=== PATIENT | male | born 1970 | race American Indian/Alaskan Native ===

== ENCOUNTER 2016-09-07 12:08 | Inpatient (IN) | payer MEDICARE ==
--- NOTE | 2016-09-07 12:53 | XRay Report ---
PORTABLE CHEST INDICATION: Hypertension. COMPARISON: 02/02/2016 FINDINGS: Portable, frontal chest radiograph demonstrates subtle nodular right upper to midlung zone infiltrate over an approximately 4 cm area, possibly in the upper lobe. Clear, well-expanded remainder lungs. No pleural effusions or CHF. Normal cardiomediastinal silhouette. EKG leads. Intact bones. CONCLUSION: Subtle right upper lobe pneumonia suspected, as described. Please correlate. Note also made of nodular infiltrative processes in the lungs reported on November [address] Thank you for the opportunity to participate in this patient's care.
[2016-09-07] MEDS ORDERED: NACL 0.9% 1000 ML 2,000 ML IV ONE (13:25)
[2016-09-07] MEDS ORDERED: VANCOMYCIN/NS 1 GM/250 ML 1 GM/250 ML BAG IV ONE (13:25)
[2016-09-07] MEDS ORDERED: MAXIPIME/NS 1 GM/100 ML 1 GM/100 ML BAG IV ONE (13:26)
[2016-09-07 14:21] LABS: Hematocrit 24.4 % (35.5-45.6); Hemoglobin 7.4 gm/dl (11.8-15.2); Mean Corpuscular HGB Conc 30 % (32-34); Mean Corpuscular Volume 75 fl (84-94); Platelet Count 143 K/mm3 (140-440); Red Blood Count 3.26 M/mm3 (3.65-5.03); Red Cell Distribution Width 19.2 % (13.2-15.2)
[2016-09-07 14:25] LABS: Mean Corpuscular Hemoglobin 23 pg (28-32); White Blood Count 1.7 K/mm3 (4.5-11.0)
[2016-09-07 14:35] LABS: Albumin 2.6 g/dL (3.9-5); Albumin/Globulin Ratio 0.5 %; Alkaline Phosphatase 51 units/L (35-129); Anion Gap 16 mmol/L; BUN/Creatinine Ratio 17.69; Blood Urea Nitrogen 23 mg/dL (9-20); Carbon Dioxide 21 mmol/L (22-30); Chloride 112.7 mmol/L (98-107); Glucose 78 mg/dL (75-100); Potassium 4.4 mmol/L (3.6-5.0); Sodium 145 mmol/L (137-145)
--- NOTE | 2016-09-07 14:39 | Emergency Department Report ---
ED Shortness of Breath HPI - General Chief Complaint: Dyspnea/Respdistress Stated Complaint: BERT Time Seen by Provider: 09/07/16 12:34 Source: patient Mode of arrival: Stretcher Limitations: Physical Limitation - History of Present Illness MD Complaint: shortness of breath, cough -: Gradual, days(s) Severity: mild Pain Scale: 3 Consistency: constant Improves With: nothing Worsens With: exertion Known History Of: HIV Associated Symptoms: cough, sputum production - Related Data Home Medications Medication Instructions Recorded Confirmed Last Taken Unobtainable 09/07/16 09/07/16 Unknown Allergies Allergy/AdvReac Type Severity Reaction Status Date / Time No Known Allergies Allergy Verified 12/07/15 04:53 ED Review of Systems ROS: Stated complaint: BERT Other details as noted in HPI Other: GENERAL: No weight change, fatigue, weakness, fever, chills, or night sweats SKIN: No changes in skin or hair, no itching, no rashes, no jaundice HEAD: No trauma, headache, or visual changes EYES: No blurriness, tearing, itching, acute visual loss, conjunctival discoloration, or scleral icterus EARS: No hearing loss, tinnitus, vertigo, or earache NOSE: No rhinorrhea, stuffiness, sneezing, itching, or epistaxis MOUTH: No bleeding gums, hoarseness, sore throat, or swelling CARDIAC: No new murmur, chest pain, palpitations, dyspnea on exertion, orthopnea , PND, or edema RESPIRATORY: shortness of breath, cough, sputum production, GI: No change in appetite, nausea, vomiting, dysphagia, change in bowel frequency, diarrhea, constipation, bleeding, hematemesis, melena, hematochezia, or abdominal pain URINARY: No frequency, urgency, polyuria, dysuria, hematuria, or incontinence MUSCULOSKELETAL: No muscle weakness, joint stiffness, decrease in range of motion, redness, swelling, tenderness NEUROLOGIC: No loss of sensation, numbness, tingling, tremors, weakness, paralysis, seizures HEMATOLOGIC: No anemia, easy bruising, bleeding, petechiae, or purpura ENDOCRINE: No hot or cold intolerance, sweating, polyuria, polydipsia or, polyphagia no thyroid problems PSYCHIATRIC: No change in mood, no anxiety, no depression ED Past Medical Hx - Past Medical History Hx Congestive Heart Failure: No Hx Diabetes: No Hx Sickle Cell Disease: No Hx Asthma: Yes Hx COPD: No Hx Tuberculosis: No Hx HIV: Yes (unknown CD4 count) - Social History Smoking Status: Never Smoker Substance Use Type: None - Medications Home Medications: Home Medications Medication Instructions Recorded Confirmed Last Taken Type Unobtainable 09/07/16 09/07/16 Unknown History ED Physical Exam - General Limitations: No Limitations - Other Other exam information: GENERAL: Patient in no acute distress HEAD: Normocephalic, atraumatic HEART: Regular rate and rhythm, no murmur, S1-S2 are auscultated, pulses are symmetric LUNGS: diminished breath sounds, rales ABDOMEN: Normal bowel sounds, no tenderness, no rebound, no guarding, no masses , no CVA tenderness MUSCULOSKELETAL: Normal joint range of motion, no redness, no swelling, no tenderness NEUROLOGIC: grossly intact SKIN: Skin is warm and dry ED Course Vital Signs 09/07/16 09/07/16 09/07/16 12:23 12:31 12:38 Temperature 97.8 F Pulse Rate 68 68 Respiratory 14 14 Rate Blood Pressure 97/69 Blood Pressure [Right] O2 Sat by Pulse 97 Oximetry 09/07/16 09/07/16 09/07/16 13:30 14:30 17:15 Temperature Pulse Rate 74 81 62 Respiratory 14 16 20 Rate Blood Pressure Blood Pressure 97/64 104/74 98/55 [Right] O2 Sat by Pulse 99 100 Oximetry ED Medical Decision Making - Lab Data Result diagrams: 09/07/16 13:44 09/07/16 13:44 - EKG Data Interpretation: no acute changes - Radiology Data Radiology results: report reviewed - Medical Decision Making Patient comfortable. Updated with results. Plan admission for further evaluation. Patient agrees with plan. Hospitalists accepts admission. Critical care attestation.: If time is entered above; I have spent that time in minutes in the direct care of this critically ill patient, excluding procedure time. ED Disposition Clinical Impression: Pneumonia Qualifiers: Pneumonia type: due to unspecified organism Laterality: right Lung location: unspecified part of lung Qualified Code(s): J18.9 - Pneumonia, unspecified organism Disposition: OP ADMIT IP TO THIS HOSP Is pt being admited?: Yes Condition: Stable Time of Disposition: 14:38
[2016-09-07 14:50] LABS: Alanine Aminotransferase < 5 units/L (7-56)
--- NOTE | 2016-09-07 14:54 | History and Physical Report ---
History of Present Illness Chief complaint: Im short of breath, and i get tired easy History of present illness: 46 YO Male with AIDS, Mild Intermittent Asthma presents to ED for evaluation. Pt states that he has been experiencing shortness of breath for the past week. Pt acknowledges subjective fever, 20 lbs unintentional weight loss. Pt unable to provide more history due to mental status. Pt seen and evaluated in ED. Pt is encephalopathic, but is able to protect his airway. Past History Past Medical History: HIV/AIDS, other (asthma) Past Surgical History: No surgical history, Other (reviewed) Social history: single, Lives alone. denies: smoking, alcohol abuse, prescription drug abuse Family history: no significant family history, other (reviewed) Medications and Allergies Allergies Allergy/AdvReac Type Severity Reaction Status Date / Time No Known Allergies Allergy Verified 12/07/15 04:53 Home Medications Medication Instructions Recorded Confirmed Last Taken Type Unobtainable 09/07/16 09/07/16 Unknown History Review of Systems ROS unobtainable: due to mental status Exam - Constitutional Vitals: Temp Pulse Resp BP Pulse Ox 97.8 F 82 16 138/76 99 09/07/16 12:23 09/07/16 14:06 09/07/16 14:06 09/07/16 14:06 09/07/16 14:06 General appearance: Present: mild distress, cachectic, disheveled, other ( bilateral temporal wasting) - EENT Eyes: Present: PERRL ENT: hearing intact, clear oral mucosa - Neck Neck: Present: supple, normal ROM - Respiratory Respiratory effort: labored Respiratory: bilateral: diminished - Cardiovascular Rhythm: regular Heart Sounds: Present: S1 & S2 - Extremities Extremities: no ischemia Peripheral Pulses: within normal limits - Abdominal General gastrointestinal: Present: soft, non-tender Male genitourinary: Present: normal - Integumentary Integumentary: Present: clear, dry, decreased turgor - Musculoskeletal Musculoskeletal: generalized weakness - Psychiatric Psychiatric: no intact judgment & insight, no memory intact - Neurologic Neurologic: CNII-XII intact, no gait normal Results - Labs CBC & Chem 7: 09/07/16 13:44 09/07/16 13:44 Labs: Abnormal lab results 09/07/16 09/07/16 Range/Units 13:44 13:44 WBC 1.7 L* (4.5-11.0) K/mm3 RBC 3.26 L (3.65-5.03) M/mm3 Hgb 7.4 L (11.8-15.2) gm/dl Hct 24.4 L (35.5-45.6) % MCV 75 L (84-94) fl MCH 23 L (28-32) pg MCHC 30 L (32-34) % RDW 19.2 H (13.2-15.2) % Chloride 112.7 H (98-107) mmol/L Carbon Dioxide 21 L (22-30) mmol/L BUN 23 H (9-20) mg/dL Calcium 8.0 L (8.4-10.2) mg/dL ALT < 5 L (7-56) units/L Albumin 2.6 L (3.9-5) g/dL Assessment and Plan - Patient Problems (1) AIDS Current Visit: Yes Status: Acute Plan to address problem: Resume antiretroviral therapy, supportive care, outpatient ID f/u, PCP and MAC prophylaxis (2) Pneumocystis carinii pneumonia Current Visit: Yes Status: Acute Qualifiers: Laterality: L Lung location: L Plan to address problem: Iv abx: Iv bactrim, corticosteroid therapy, supportive care, (3) Encephalopathy acute Current Visit: Yes Status: Acute Plan to address problem: Treat pneumonia, supportive care. (4) Severe malnutrition Current Visit: Yes Status: Acute Plan to address problem: encourage oral intake when awake, alert (5) DVT prophylaxis Current Visit: Yes Status: Acute
[2016-09-07 15:01] LABS: Basophils % (Manual) 0 % (0.0-1.8); Blastocytes % (Manual) 0 %
[2016-09-07 15:02] LABS: Anisocytosis 2+; Diff Status Complete; Elliptocytes 1+; Giant Platelets Rare; Hypochromasia 1+; Microcytosis 1+; Ovalocytes 1+; Poikilocytosis 2+; Schistocytes Rare; Tear Drop Cells Rare
[2016-09-07] MEDS ORDERED: TYLENOL PO PRN (16:08)
[2016-09-07] MEDS ORDERED: ZOFRAN IV PRN (16:08)
[2016-09-07] MEDS ORDERED: DUONEB 0.5 MG-3 MG/3 ML SOLN IH PRN (16:08)
[2016-09-07] MEDS ORDERED: PROVENTIL IH PRN (16:30)
[2016-09-07] MEDS ORDERED: ZITHROMAX 500 MG in NACL 0.9% 250ML 250 ML IV SCH (17:00)
[2016-09-07] MEDS ORDERED: NACL 0.9% 1000 ML 1,000 ML ONE (17:05)
[2016-09-07] MEDS: D5W IV SCH (22:28)
[2016-09-07] MEDS: BACTRIM IV SCH (22:28)
[2016-09-08] MEDS: NACL 0.45% 1000 ML 1,000 ML IV SCH (08:21)
--- NOTE | 2016-09-08 08:39 | Admit Criteria Form ---
Admission Criteria Documentation: PNEUMONIA, COMMUNITY ACQUIRED Clinical Indications for Admission to Inpatient Care ( Place 'X' for any and all applicable criteria): Admission is indicated for ANY ONE of the following (1)(2)(3): [ ]I. Hypoxemia indicated by ANY ONE of the following: [ ]a) Oxygen saturation less than 90% while breathing room air [ ]b) PO2 less than 60 mm Hg (8.0 kPa) while breathing room air [ ]c) Chronic lung disease with significant deterioration from baseline oxygenation [ ]II. Appropriate diagnostic testing and treatment unavailable in outpatient or recovery facility (eg,testing or infection control measures unavailable(10) [ ]III. Moderate-risk or high-risk category patients (Pneumonia Severity Index (PSI) class IV or V, or CURB-65 score of 3 or greater). [ ]IV. Outpatient treatment failure as indicated by ANY ONE of the following(9) : [ ]a) Failure to respond to antibiotic (eg, resistant organism) [ ]b) Clinically significant adverse effects from medication (eg, vomiting) [ ]c) Complications of pneumonia (eg, empyema, bacteremia) [ ]d) Significant worsening of comorbid cond necessitating inpatient care (eg, chronic heart failure) [ ]V. Intermediate-risk category patients (eg, PSI class III or CURB-65 score 2) who do not improve with initial therapy and observation. [X]. Immunocompromised patients (eg, AIDS, chronic steroid use) at moderate or high risk based on clinical evaluation. [ ]VII. Complicated pleural effusions (eg, exudative, loculated) [ ]VIII.Hemodynamic instability [ ] IX. Altered mental status that is severe or persistent. [ ]X. Dehydration that is severe or persistent. [ ]XI. Bacteremia [ ]XII. Respiratory finding (eg. tachypnea) that do not respond to outpatient or observation care treatment Extended stay beyond goal length of stay may be needed for (20) [ ]a) Unclear diagnosis [ ]b) Pleural disease [ ]c) Severe pneumonia or treatment failure (25 [ ]d) Respiratory failure (anticipate invasive or noninvasive ventilatory support) [ ]e) Abnormal serum electrolytes (serum Na concentration less than 135 mEq/L (mmol/L) (32)(33) [ ]f) Clinically significant comorbid illness (eg, heart failure, atrial fibrillation with rapid heart rate, alcohol withdrawal, renal insufficiency)(34)(35) [ ]g) Comorbid acute exacerbation of COPD(36) [ ]h) Concomitant diagnosis of malignancy that may be associated with malnutrition, immunologic impairment, or bronchial obstruction. [ ]i) Concomitant altered mental status [ ]j) Culture-identified Gram-negative or antibiotic-resistant organism (eg, Pseudomonas, methicillin-resistant Staphylococcus aureus)(30) [ ]k) Healthcare-associated pneumonia The original [employer] content created by [employer] has been revised. The portions of the content which have been revised are identified through the use of italic text or in bold, and [facility] has neither reviewed nor approved the modified material. All other unmodified content is copyright [employer]. Please see references footnoted in the original [email or web address] edition 2016 Admission Criteria Met: Yes
--- NOTE | 2016-09-08 11:27 | Progress Note ---
Assessment and Plan Assessment and plan: 46-year-old -German male with past medical history significant for AIDS , medication noncompliance presented to the emergency department complaining of cough and shortness of breath for the last 2 weeks associated with weight loss. He is admitted for further workup and management. PCP AIDS Noncompliance Right lower lobe pneumonia Malnutrition Leukopenia Anemia of chronic illness - Patient started on Bactrim and prednisone - Patient is on IV Levaquin - ID is consulted - Nutrition consult for malnutrition - Patient is counseled about medication compliance DVT prophylaxis - SCD because of anemia Disposition - We'll continue inpatient care. History Interval history: Patient was seen and evaluated this morning, he is complaining of cough productive of greenish sputum. Significant weight loss. Hospitalist Physical - Physical exam Narrative exam: Not in cardiopulmonary distress. The patient is cachectic. Vital signs as documented. Head exam is unremarkable. No scleral icterus . Neck is without jugular venous distension, thyromegaly, or carotid bruits. Lungs are clear to auscultation. Cardiac exam reveals regular rate and Rhythm. First and second heart sounds normal. No murmurs, rubs or gallops. Abdominal exam reveals normal bowel sounds, no masses, no organomegaly and no aortic enlargement. Extremities are nonedematous and both femoral and pedal pulses are normal. [employer]: Alert and oriented 3. No focal weakness. - Constitutional Vitals: Temp Pulse Resp BP Pulse Ox 98.1 F 76 18 88/57 100 09/08/16 04:00 09/08/16 04:00 09/08/16 04:00 09/08/16 04:00 09/07/16 23:02 General appearance: Present: mild distress, cachectic, disheveled, other ( bilateral temporal wasting) Results - Labs CBC & Chem 7: 09/07/16 13:44 09/07/16 13:44 Labs: Laboratory Last Values WBC 1.7 K/mm3 (4.5-11.0) L* 09/07/16 13:44 RBC 3.26 M/mm3 (3.65-5.03) L 09/07/16 13:44 Hgb 7.4 gm/dl (11.8-15.2) L 09/07/16 13:44 Hct 24.4 % (35.5-45.6) L 09/07/16 13:44 MCV 75 fl (84-94) L 09/07/16 13:44 MCH 23 pg (28-32) L 09/07/16 13:44 MCHC 30 % (32-34) L 09/07/16 13:44 RDW 19.2 % (13.2-15.2) H 09/07/16 13:44 Plt Count 143 K/mm3 (140-440) 09/07/16 13:44 Add Manual Diff Complete 09/07/16 13:44 Total Counted 100 09/07/16 13:44 Seg Neuts % (Manual) 76.0 % (40.0-70.0) H 09/07/16 13:44 Band Neutrophils % 4.0 % 09/07/16 13:44 Lymphocytes % (Manual) 13.0 % (13.4-35.0) L 09/07/16 13:44 Reactive Lymphs % (Man) 0 % 09/07/16 13:44 Monocytes % (Manual) 6.0 % (0.0-7.3) 09/07/16 13:44 Eosinophils % (Manual) 1.0 % (0.0-4.3) 09/07/16 13:44 Basophils % (Manual) 0 % (0.0-1.8) 09/07/16 13:44 Metamyelocytes % 0 % 09/07/16 13:44 Myelocytes % 0 % 09/07/16 13:44 Promyelocytes % 0 % 09/07/16 13:44 Blast Cells % 0 % 09/07/16 13:44 Nucleated RBC % Not Reportable 09/07/16 13:44 Seg Neutrophils # Man 1.3 K/mm3 (1.8-7.7) L 09/07/16 13:44 Band Neutrophils # 0.1 K/mm3 09/07/16 13:44 Lymphocytes # (Manual) 0.2 K/mm3 (1.2-5.4) L 09/07/16 13:44 Abs React Lymphs (Man) 0.0 K/mm3 09/07/16 13:44 Monocytes # (Manual) 0.1 K/mm3 (0.0-0.8) 09/07/16 13:44 Eosinophils # (Manual) 0.0 K/mm3 (0.0-0.4) 09/07/16 13:44 Basophils # (Manual) 0.0 K/mm3 (0.0-0.1) 09/07/16 13:44 Metamyelocytes # 0.0 K/mm3 09/07/16 13:44 Myelocytes # 0.0 K/mm3 09/07/16 13:44 Promyelocytes # 0.0 K/mm3 09/07/16 13:44 Blast Cells # 0.0 K/mm3 09/07/16 13:44 WBC Morphology Not Reportable 09/07/16 13:44 Hypersegmented Neuts Not Reportable 09/07/16 13:44 Hyposegmented Neuts Not Reportable 09/07/16 13:44 Hypogranular Neuts Not Reportable 09/07/16 13:44 Smudge Cells Not Reportable 09/07/16 13:44 Toxic Granulation Not Reportable 09/07/16 13:44 Toxic Vacuolation Not Reportable 09/07/16 13:44 Dohle Bodies Not Reportable 09/07/16 13:44 Pelger-Huet Anomaly Not Reportable 09/07/16 13:44 Tamia Rods Not Reportable 09/07/16 13:44 Platelet Estimate Appears normal 09/07/16 13:44 Clumped Platelets Not Reportable 09/07/16 13:44 Plt Clumps, EDTA Not Reportable 09/07/16 13:44 Large Platelets Not Reportable 09/07/16 13:44 Giant Platelets Rare 09/07/16 13:44 Platelet Satelliting Not Reportable 09/07/16 13:44 Plt Morphology Comment Not Reportable 09/07/16 13:44 RBC Morphology Not Reportable 09/07/16 13:44 Dimorphic RBCs Not Reportable 09/07/16 13:44 Polychromasia Not Reportable 09/07/16 13:44 Hypochromasia 1+ 09/07/16 13:44 Poikilocytosis 2+ 09/07/16 13:44 Anisocytosis 2+ 09/07/16 13:44 Microcytosis 1+ 09/07/16 13:44 Macrocytosis Not Reportable 09/07/16 13:44 Spherocytes Not Reportable 09/07/16 13:44 Pappenheimer Bodies Not Reportable 09/07/16 13:44 Sickle Cells Not Reportable 09/07/16 13:44 Target Cells Not Reportable 09/07/16 13:44 Tear Drop Cells Rare 09/07/16 13:44 Ovalocytes 1+ 09/07/16 13:44 Helmet Cells Not Reportable 09/07/16 13:44 Arizmendi-Ridgway Bodies Not Reportable 09/07/16 13:44 [place] Rings Not Reportable 09/07/16 13:44 Dianna Cells Not Reportable 09/07/16 13:44 Bite Cells Not Reportable 09/07/16 13:44 Crenated Cell Not Reportable 09/07/16 13:44 Elliptocytes 1+ 09/07/16 13:44 Acanthocytes (Spur) Not Reportable 09/07/16 13:44 Rouleaux Not Reportable 09/07/16 13:44 Hemoglobin C Crystals Not Reportable 09/07/16 13:44 Schistocytes Rare 09/07/16 13:44 Malaria parasites Not Reportable 09/07/16 13:44 Telly Bodies Not Reportable 09/07/16 13:44 Hem Pathologist Commnt No 09/07/16 13:44 Sodium 145 mmol/L (137-145) 09/07/16 13:44 Potassium 4.4 mmol/L (3.6-5.0) 09/07/16 13:44 Chloride 112.7 mmol/L (98-107) H 09/07/16 13:44 Carbon Dioxide 21 mmol/L (22-30) L 09/07/16 13:44 Anion Gap 16 mmol/L 09/07/16 13:44 BUN 23 mg/dL (9-20) H 09/07/16 13:44 Creatinine 1.3 mg/dL (0.8-1.5) 09/07/16 13:44 Estimated GFR > 60 ml/min 09/07/16 13:44 BUN/Creatinine Ratio 17.69 % 09/07/16 13:44 Glucose 78 mg/dL (75-100) 09/07/16 13:44 Lactic Acid 0.80 mmol/L (0.7-2.0) 09/07/16 13:44 Calcium 8.0 mg/dL (8.4-10.2) L 09/07/16 13:44 Total Bilirubin 0.30 mg/dL (0.1-1.2) 09/07/16 13:44 AST 13 units/L (5-40) 09/07/16 13:44 ALT < 5 units/L (7-56) L 09/07/16 13:44 Alkaline Phosphatase 51 units/L (35-129) 09/07/16 13:44 Troponin T < 0.010 ng/mL (0.00-0.029) 09/07/16 13:44 Total Protein 8.0 g/dL (6.3-8.2) 09/07/16 13:44 Albumin 2.6 g/dL (3.9-5) L 09/07/16 13:44 Albumin/Globulin Ratio 0.5 % 09/07/16 13:44 leukopenia
[2016-09-08] MEDS: LEVAQUIN 750MG/150ML 750 MG/150 ML BAG IV SCH (13:00)
[2016-09-08] MEDS: D5W IV SCH (20:57)
[2016-09-08] MEDS: BACTRIM IV SCH (20:57)
[2016-09-08] MEDS: PEPCID PO SCH (21:26)
--- NOTE | 2016-09-09 06:07 | Consultation ---
History of Present Illness - Reason for Consult Consult date: 09/09/16 AIDS; Pneumocystis PNA Requesting physician: MAGALI ESPINOSA - History of Present Illness Mr. Parks is a 46-year-old man with AIDS who is followed by Dr. Alarcon at [facility]. He is admitted with progressive dyspnea over several weeks. His CD4=21 in Nov 2015. He does not know a more recent value. He is unsure of his regimen, but says he is on "Trizivir and 6 other pills." A HIV genotype showed wild-type virus last fall. Chest radiograph shows a subtle RUL infiltrate as well as a nodular infiltrative process previous seen on chest CT. He is prescribed Bactrim with steroids for a presumptive diagnosis of Pneumocystis pneumonia and Levaquin for treatment of a bacterial component. ID consultation is requested for additional recommendations on management of AIDS and PjP. Past History Past Medical History: HIV/AIDS, other (asthma) Past Surgical History: No surgical history, Other (reviewed) Social history: single, Lives alone. denies: smoking, alcohol abuse, prescription drug abuse Family history: no significant family history, other (reviewed) Medications and Allergies Allergies Allergy/AdvReac Type Severity Reaction Status Date / Time No Known Allergies Allergy Verified 12/07/15 04:53 Home Medications Medication Instructions Recorded Confirmed Last Taken Type Unobtainable 09/07/16 09/07/16 Unknown History Active Meds: Active Medications Acetaminophen (Tylenol) 650 mg PO Q4H PRN PRN Reason: Pain MILD(1-3)/Fever >100.5/GUILLORY Albuterol (Proventil) 2.5 mg IH Q6HRT PRN PRN Reason: Wheezing Famotidine (Pepcid) 20 mg PO BID [facility] Last Admin: 09/08/16 21:26 Dose: 20 mg Sodium Chloride (Nacl 0.45% 1000 Ml) 1,000 mls @ 42 mls/hr IV DIRECT [facility]ASHANT Last Admin: 09/08/16 08:21 Dose: 42 mls/hr Trimethoprim/Sulfamethoxazole (544 mg/ Dextrose) 534 mls @ 167 mls/hr IV Q24H [facility] PRN Reason: Protocol Last Admin: 09/08/16 20:57 Dose: 167 mls/hr Levofloxacin/Dextrose (Levaquin 750mg/150ml) 750 mg in 150 mls @ 100 mls/hr IV Q24H [facility] PRN Reason: Protocol Last Admin: 09/08/16 13:00 Dose: 100 mls/hr Ondansetron HCl (Zofran) 4 mg IV Q8H PRN PRN Reason: N/V unrelieved by Reglan Prednisone (Deltasone) 40 mg PO QDAY [facility] Review of Systems All systems: negative Constitutional: chills, fatigue, weakness, no fever, no sweats Ears, nose, mouth and throat: no dysphagia, no odynophagia Cardiovascular: shortness of breath, no chest pain, no palpitations Respiratory: cough, cough with sputum ("sometimes") Gastrointestinal: no abdominal pain, no nausea, no vomiting, no diarrhea Integumentary: pruritis, darkening of skin, no rash Hematologic/Lymphatic: no lymphadenopathy Physical Examination - Constitutional Vitals: Vital Signs Temp Pulse Resp BP Pulse Ox 97.6 F 87 18 96/68 100 09/09/16 00:00 09/09/16 00:00 09/09/16 00:00 09/09/16 00:00 09/09/16 00:00 Temperature -Last 24 Hours Temperature 97.6 F Temperature 98.4 F Temperature 97.9 F General appearance: Present: no acute distress, cachectic, disheveled - EENT Eyes: Absent: scleral icterus, conjunctival injection ENT: poor dentition, no thrush - Neck Neck: Present: supple - Respiratory Respiratory effort: normal Respiratory: bilateral: diminished, negative: rhonchi, wheezing - Cardiovascular Rhythm: regular (mild tachycardia) Heart Sounds: Present: S1 & S2 - Extremities Extremities: No edema - Abdominal General gastrointestinal: Present: soft, non-tender, non-distended - Integumentary Integumentary: Present: rash (diffuse hyperpigmented macules) - Psychiatric Psychiatric: other (flattened affect) - Neurologic Neurologic: no focal deficits Results - Labs CBC & Chem 7: 09/09/16 05:46 09/09/16 05:46 Labs: Microbiology 09/07/16 13:44 Peripheral/Venous Blood Culture - Preliminary NO GROWTH AFTER 24 HOURS 09/07/16 14:26 Peripheral/Venous Blood Culture - Preliminary NO GROWTH AFTER 24 HOURS - Imaging and Cardiology Chest x-ray: report reviewed Assessment and Plan - Patient Problems (1) Pneumonia Current Visit: Yes Status: Acute Qualifiers: Pneumonia type: due to unspecified organism Aspiration pneumonia type: A Laterality: right Lung location: unspecified part of lung Qualified Code(s) : J18.9 - Pneumonia, unspecified organism Plan to address problem: 1. Moderate differential, but presumed PjP and/or CAP. Agree with empiric Levaquin and Bactrim +/- steroids. 2. Will obtain ABG, sputum culture, quantiferon, also cryptococcal antigen given nodular findings. 3. Will increased Prednisone dose to BID dosing if patient is significantly hypoxemic. 4. Bronchoscopy is recommended if little clinical improvement on current therapy. (2) AIDS Current Visit: Yes Status: Acute Plan to address problem: 1. Previous wild-type HIV on genotype. 2. I will try to get information from [facility] when they reopen next week.
[2016-09-09 07:07] LABS: Basophils % (Auto) 0.2 % (0.0-1.8); Hematocrit 20.8 % (35.5-45.6); Hemoglobin 6.2 gm/dl (11.8-15.2); Mean Corpuscular HGB Conc 30 % (32-34); Mean Corpuscular Volume 75 fl (84-94); Red Blood Count 2.76 M/mm3 (3.65-5.03); Red Cell Distribution Width 18.9 % (13.2-15.2); White Blood Count 3.2 K/mm3 (4.5-11.0)
[2016-09-09 07:17] LABS: Anion Gap 18 mmol/L; BUN/Creatinine Ratio 15.45; Blood Urea Nitrogen 17 mg/dL (9-20); Calcium 7.4 mg/dL (8.4-10.2); Carbon Dioxide 16 mmol/L (22-30); Chloride 110.1 mmol/L (98-107); Glucose 92 mg/dL (75-100); Potassium 4.1 mmol/L (3.6-5.0); Sodium 140 mmol/L (137-145)
[2016-09-09 07:35] LABS: Mean Corpuscular Hemoglobin 23 pg (28-32)
[2016-09-09 08:08] LABS: Platelet Count 139 K/mm3 (140-440)
[2016-09-09 10:52] LABS: ISTAT Base Excess -11; ISTAT DEVICE 0; ISTAT HCO3 14.5; ISTAT PCO2 25.1 (35-45); ISTAT PH 7.368 (7.35-7.45); ISTAT PO2 91 (80-105); ISTAT SO2 97; ISTAT TCO2 15
[2016-09-09] MEDS: PEPCID PO SCH ×2 (11:28→22:13)
[2016-09-09] MEDS: DELTASONE PO SCH (11:28)
--- NOTE | 2016-09-09 11:33 | Progress Note ---
Assessment and Plan Assessment and plan: 46-year-old -[place] male with past medical history significant for AIDS , medication noncompliance presented to the emergency department complaining of cough and shortness of breath for the last 2 weeks associated with weight loss. He is admitted for further workup and management. PCP AIDS Noncompliance Right lower lobe pneumonia Malnutrition Leukopenia Anemia of chronic illness - Patient started on Bactrim and prednisone - Patient is on IV Levaquin - ID is consult appreciated - Nutrition consult for malnutrition - Patient is counseled about medication compliance DVT prophylaxis - SCD because of anemia Disposition - We'll continue inpatient care. History Interval history: Patient was seen and evaluated this morning, he is complaining of cough productive of greenish sputum. Hospitalist Physical - Physical exam Narrative exam: Not in cardiopulmonary distress. The patient is cachectic. Vital signs as documented. Head exam is unremarkable. No scleral icterus . Neck is without jugular venous distension, thyromegaly, or carotid bruits. Lungs are clear to auscultation. Cardiac exam reveals regular rate and Rhythm. First and second heart sounds normal. No murmurs, rubs or gallops. Abdominal exam reveals normal bowel sounds, no masses, no organomegaly and no aortic enlargement. Extremities are nonedematous and both femoral and pedal pulses are normal. 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 No focal weakness. - Constitutional Vitals: Temp Pulse Resp BP Pulse Ox 98.2 F 60 16 102/68 97 09/09/16 08:27 09/09/16 08:27 09/09/16 08:27 09/09/16 08:27 09/09/16 10:26 General appearance: Present: mild distress, cachectic, disheveled, other ( bilateral temporal wasting) Results - Labs CBC & Chem 7: 09/09/16 05:46 09/09/16 05:46 Labs: Laboratory Last Values WBC 3.2 K/mm3 (4.5-11.0) L 09/09/16 05:46 RBC 2.76 M/mm3 (3.65-5.03) L 09/09/16 05:46 Hgb 6.2 gm/dl (11.8-15.2) L 09/09/16 05:46 Hct 20.8 % (35.5-45.6) L 09/09/16 05:46 MCV 75 fl (84-94) L 09/09/16 05:46 MCH 23 pg (28-32) L 09/09/16 05:46 MCHC 30 % (32-34) L 09/09/16 05:46 RDW 18.9 % (13.2-15.2) H 09/09/16 05:46 Plt Count 139 K/mm3 (140-440) L 09/09/16 05:46 Lymph % (Auto) 12.3 % (13.4-35.0) L 09/09/16 05:46 [place] % (Auto) 9.8 % (0.0-7.3) H 09/09/16 05:46 Eos % (Auto) 0.0 % (0.0-4.3) 09/09/16 05:46 Baso % (Auto) 0.2 % (0.0-1.8) 09/09/16 05:46 Lymph # 0.4 K/mm3 (1.2-5.4) L 09/09/16 05:46 [place] # 0.3 K/mm3 (0.0-0.8) 09/09/16 05:46 Eos # 0.0 K/mm3 (0.0-0.4) 09/09/16 05:46 Baso # 0.0 K/mm3 (0.0-0.1) 09/09/16 05:46 Add Manual Diff Complete 09/07/16 13:44 Total Counted 100 09/07/16 13:44 Seg Neutrophils % 77.7 % (40.0-70.0) H 09/09/16 05:46 Seg Neuts % (Manual) 76.0 % (40.0-70.0) H 09/07/16 13:44 Band Neutrophils % 4.0 % 09/07/16 13:44 Lymphocytes % (Manual) 13.0 % (13.4-35.0) L 09/07/16 13:44 Reactive Lymphs % (Man) 0 % 09/07/16 13:44 Monocytes % (Manual) 6.0 % (0.0-7.3) 09/07/16 13:44 Eosinophils % (Manual) 1.0 % (0.0-4.3) 09/07/16 13:44 Basophils % (Manual) 0 % (0.0-1.8) 09/07/16 13:44 Metamyelocytes % 0 % 09/07/16 13:44 Myelocytes % 0 % 09/07/16 13:44 Promyelocytes % 0 % 09/07/16 13:44 Blast Cells % 0 % 09/07/16 13:44 Nucleated RBC % Not Reportable 09/07/16 13:44 Seg Neutrophils # 2.5 K/mm3 (1.8-7.7) 09/09/16 05:46 Seg Neutrophils # Man 1.3 K/mm3 (1.8-7.7) L 09/07/16 13:44 Band Neutrophils # 0.1 K/mm3 09/07/16 13:44 Lymphocytes # (Manual) 0.2 K/mm3 (1.2-5.4) L 09/07/16 13:44 Abs React Lymphs (Man) 0.0 K/mm3 09/07/16 13:44 Monocytes # (Manual) 0.1 K/mm3 (0.0-0.8) 09/07/16 13:44 Eosinophils # (Manual) 0.0 K/mm3 (0.0-0.4) 09/07/16 13:44 Basophils # (Manual) 0.0 K/mm3 (0.0-0.1) 09/07/16 13:44 Metamyelocytes # 0.0 K/mm3 09/07/16 13:44 Myelocytes # 0.0 K/mm3 09/07/16 13:44 Promyelocytes # 0.0 K/mm3 09/07/16 13:44 Blast Cells # 0.0 K/mm3 09/07/16 13:44 WBC Morphology Not Reportable 09/07/16 13:44 Hypersegmented Neuts Not Reportable 09/07/16 13:44 Hyposegmented Neuts Not Reportable 09/07/16 13:44 Hypogranular Neuts Not Reportable 09/07/16 13:44 Smudge Cells Not Reportable 09/07/16 13:44 Toxic Granulation Not Reportable 09/07/16 13:44 Toxic Vacuolation Not Reportable 09/07/16 13:44 Dohle Bodies Not Reportable 09/07/16 13:44 Pelger-Huet Anomaly Not Reportable 09/07/16 13:44 Tamia Rods Not Reportable 09/07/16 13:44 Platelet Estimate Appears normal 09/07/16 13:44 Clumped Platelets Not Reportable 09/07/16 13:44 Plt Clumps, EDTA Not Reportable 09/07/16 13:44 Large Platelets Not Reportable 09/07/16 13:44 Giant Platelets Rare 09/07/16 13:44 Platelet Satelliting Not Reportable 09/07/16 13:44 Plt Morphology Comment Not Reportable 09/07/16 13:44 RBC Morphology Not Reportable 09/07/16 13:44 Dimorphic RBCs Not Reportable 09/07/16 13:44 Polychromasia Not Reportable 09/07/16 13:44 Hypochromasia 1+ 09/07/16 13:44 Poikilocytosis 2+ 09/07/16 13:44 Anisocytosis 2+ 09/07/16 13:44 Microcytosis 1+ 09/07/16 13:44 Macrocytosis Not Reportable 09/07/16 13:44 Spherocytes Not Reportable 09/07/16 13:44 Pappenheimer Bodies Not Reportable 09/07/16 13:44 Sickle Cells Not Reportable 09/07/16 13:44 Target Cells Not Reportable 09/07/16 13:44 Tear Drop Cells Rare 09/07/16 13:44 Ovalocytes 1+ 09/07/16 13:44 Helmet Cells Not Reportable 09/07/16 13:44 [place] Bodies Not Reportable 09/07/16 13:44 [place] Rings Not Reportable 09/07/16 13:44 [place] Cells Not Reportable 09/07/16 13:44 Bite Cells Not Reportable 09/07/16 13:44 Crenated Cell Not Reportable 09/07/16 13:44 Elliptocytes 1+ 09/07/16 13:44 Acanthocytes (Spur) Not Reportable 09/07/16 13:44 Rouleaux Not Reportable 09/07/16 13:44 Hemoglobin C Crystals Not Reportable 09/07/16 13:44 Schistocytes Rare 09/07/16 13:44 Malaria parasites Not Reportable 09/07/16 13:44 Telly Bodies Not Reportable 09/07/16 13:44 Hem Pathologist Commnt No 09/07/16 13:44 POC ABG pH 7.368 (7.35-7.45) 09/09/16 10:20 POC ABG pCO2 25.1 (35-45) L 09/09/16 10:20 POC ABG pO2 91 (80-105) 09/09/16 10:20 POC ABG HCO3 14.5 09/09/16 10:20 POC ABG Total CO2 15 09/09/16 10:20 POC ABG O2 Sat 97 09/09/16 10:20 POC ABG Base Excess -11 09/09/16 10:20 FiO2 21 % 09/09/16 10:20 Sodium 140 mmol/L (137-145) 09/09/16 05:46 Potassium 4.1 mmol/L (3.6-5.0) 09/09/16 05:46 Chloride 110.1 mmol/L (98-107) H 09/09/16 05:46 Carbon Dioxide 16 mmol/L (22-30) L 09/09/16 05:46 Anion Gap 18 mmol/L 09/09/16 05:46 BUN 17 mg/dL (9-20) 09/09/16 05:46 Creatinine 1.1 mg/dL (0.8-1.5) 09/09/16 05:46 Estimated GFR > 60 ml/min 09/09/16 05:46 BUN/Creatinine Ratio 15.45 % 09/09/16 05:46 Glucose 92 mg/dL (75-100) 09/09/16 05:46 Lactic Acid 0.80 mmol/L (0.7-2.0) 09/07/16 13:44 Calcium 7.4 mg/dL (8.4-10.2) L 09/09/16 05:46 Total Bilirubin 0.30 mg/dL (0.1-1.2) 09/07/16 13:44 AST 13 units/L (5-40) 09/07/16 13:44 ALT < 5 units/L (7-56) L 09/07/16 13:44 Alkaline Phosphatase 51 units/L (35-129) 09/07/16 13:44 Troponin T < 0.010 ng/mL (0.00-0.029) 09/07/16 13:44 Total Protein 8.0 g/dL (6.3-8.2) 09/07/16 13:44 Albumin 2.6 g/dL (3.9-5) L 09/07/16 13:44 Albumin/Globulin Ratio 0.5 % 09/07/16 13:44
[2016-09-09] MEDS: LEVAQUIN 750MG/150ML 750 MG/150 ML BAG IV SCH (15:44)
[2016-09-09] MEDS: BACTRIM IV SCH (20:55)
[2016-09-09] MEDS: D5W IV SCH (20:55)
[2016-09-10] MEDS ORDERED: NACL 0.9% 500 ML 500 ML IV ONE (08:16)
--- NOTE | 2016-09-10 08:16 | Progress Note ---
Assessment and Plan Assessment and plan: 46-year-old -[place] male with past medical history significant for AIDS , medication noncompliance presented to the emergency department complaining of cough and shortness of breath for the last 2 weeks associated with weight loss. He is admitted for further workup and management. PCP AIDS Noncompliance Right lower lobe pneumonia Malnutrition Leukopenia Anemia of chronic illness - Patient started on Bactrim and prednisone - Patient is on IV Levaquin - ID is consult appreciated, cryptococcal antigen is negative and QuantiFERON Gold is pending - Nutrition; dietitian consulted - Patient is counseled about medication compliance - Patient's hemoglobin dropped to 6.2, I'm going to transfuse him 2 units of blood DVT prophylaxis - SCD because of anemia Disposition - We'll continue inpatient care. History Interval history: Patient was seen and evaluated this morning, he is complaining of cough productive of greenish sputum. Hospitalist Physical - Physical exam Narrative exam: Not in cardiopulmonary distress. The patient is cachectic. Vital signs as documented. Head exam is unremarkable. No scleral icterus . Neck is without jugular venous distension, thyromegaly, or carotid bruits. Lungs are clear to auscultation. Cardiac exam reveals regular rate and Rhythm. First and second heart sounds normal. No murmurs, rubs or gallops. Abdominal exam reveals normal bowel sounds, no masses, no organomegaly and no aortic enlargement. Extremities are nonedematous and both femoral and pedal pulses are normal. 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 No focal weakness. - Constitutional Vitals: Temp Pulse Resp BP Pulse Ox 98.5 F 80 18 116/74 98 09/10/16 05:00 09/10/16 05:00 09/10/16 05:00 09/10/16 05:00 09/10/16 05:00 General appearance: Present: no acute distress, cachectic, disheveled Results - Labs CBC & Chem 7: 09/09/16 05:46 09/09/16 05:46 Labs: Laboratory Last Values WBC 3.2 K/mm3 (4.5-11.0) L 09/09/16 05:46 RBC 2.76 M/mm3 (3.65-5.03) L 09/09/16 05:46 Hgb 6.2 gm/dl (11.8-15.2) L 09/09/16 05:46 Hct 20.8 % (35.5-45.6) L 09/09/16 05:46 MCV 75 fl (84-94) L 09/09/16 05:46 MCH 23 pg (28-32) L 09/09/16 05:46 MCHC 30 % (32-34) L 09/09/16 05:46 RDW 18.9 % (13.2-15.2) H 09/09/16 05:46 Plt Count 139 K/mm3 (140-440) L 09/09/16 05:46 Lymph % (Auto) 12.3 % (13.4-35.0) L 09/09/16 05:46 [place] % (Auto) 9.8 % (0.0-7.3) H 09/09/16 05:46 Eos % (Auto) 0.0 % (0.0-4.3) 09/09/16 05:46 Baso % (Auto) 0.2 % (0.0-1.8) 09/09/16 05:46 Lymph # 0.4 K/mm3 (1.2-5.4) L 09/09/16 05:46 [place] # 0.3 K/mm3 (0.0-0.8) 09/09/16 05:46 Eos # 0.0 K/mm3 (0.0-0.4) 09/09/16 05:46 Baso # 0.0 K/mm3 (0.0-0.1) 09/09/16 05:46 Add Manual Diff Complete 09/07/16 13:44 Total Counted 100 09/07/16 13:44 Seg Neutrophils % 77.7 % (40.0-70.0) H 09/09/16 05:46 Seg Neuts % (Manual) 76.0 % (40.0-70.0) H 09/07/16 13:44 Band Neutrophils % 4.0 % 09/07/16 13:44 Lymphocytes % (Manual) 13.0 % (13.4-35.0) L 09/07/16 13:44 Reactive Lymphs % (Man) 0 % 09/07/16 13:44 Monocytes % (Manual) 6.0 % (0.0-7.3) 09/07/16 13:44 Eosinophils % (Manual) 1.0 % (0.0-4.3) 09/07/16 13:44 Basophils % (Manual) 0 % (0.0-1.8) 09/07/16 13:44 Metamyelocytes % 0 % 09/07/16 13:44 Myelocytes % 0 % 09/07/16 13:44 Promyelocytes % 0 % 09/07/16 13:44 Blast Cells % 0 % 09/07/16 13:44 Nucleated RBC % Not Reportable 09/07/16 13:44 Seg Neutrophils # 2.5 K/mm3 (1.8-7.7) 09/09/16 05:46 Seg Neutrophils # Man 1.3 K/mm3 (1.8-7.7) L 09/07/16 13:44 Band Neutrophils # 0.1 K/mm3 09/07/16 13:44 Lymphocytes # (Manual) 0.2 K/mm3 (1.2-5.4) L 09/07/16 13:44 Abs React Lymphs (Man) 0.0 K/mm3 09/07/16 13:44 Monocytes # (Manual) 0.1 K/mm3 (0.0-0.8) 09/07/16 13:44 Eosinophils # (Manual) 0.0 K/mm3 (0.0-0.4) 09/07/16 13:44 Basophils # (Manual) 0.0 K/mm3 (0.0-0.1) 09/07/16 13:44 Metamyelocytes # 0.0 K/mm3 09/07/16 13:44 Myelocytes # 0.0 K/mm3 09/07/16 13:44 Promyelocytes # 0.0 K/mm3 09/07/16 13:44 Blast Cells # 0.0 K/mm3 09/07/16 13:44 WBC Morphology Not Reportable 09/07/16 13:44 Hypersegmented Neuts Not Reportable 09/07/16 13:44 Hyposegmented Neuts Not Reportable 09/07/16 13:44 Hypogranular Neuts Not Reportable 09/07/16 13:44 Smudge Cells Not Reportable 09/07/16 13:44 Toxic Granulation Not Reportable 09/07/16 13:44 Toxic Vacuolation Not Reportable 09/07/16 13:44 Dohle Bodies Not Reportable 09/07/16 13:44 Pelger-Huet Anomaly Not Reportable 09/07/16 13:44 Tamia Rods Not Reportable 09/07/16 13:44 Platelet Estimate Appears normal 09/07/16 13:44 Clumped Platelets Not Reportable 09/07/16 13:44 Plt Clumps, EDTA Not Reportable 09/07/16 13:44 Large Platelets Not Reportable 09/07/16 13:44 Giant Platelets Rare 09/07/16 13:44 Platelet Satelliting Not Reportable 09/07/16 13:44 Plt Morphology Comment Not Reportable 09/07/16 13:44 RBC Morphology Not Reportable 09/07/16 13:44 Dimorphic RBCs Not Reportable 09/07/16 13:44 Polychromasia Not Reportable 09/07/16 13:44 Hypochromasia 1+ 09/07/16 13:44 Poikilocytosis 2+ 09/07/16 13:44 Anisocytosis 2+ 09/07/16 13:44 Microcytosis 1+ 09/07/16 13:44 Macrocytosis Not Reportable 09/07/16 13:44 Spherocytes Not Reportable 09/07/16 13:44 Pappenheimer Bodies Not Reportable 09/07/16 13:44 Sickle Cells Not Reportable 09/07/16 13:44 Target Cells Not Reportable 09/07/16 13:44 Tear Drop Cells Rare 09/07/16 13:44 Ovalocytes 1+ 09/07/16 13:44 Helmet Cells Not Reportable 09/07/16 13:44 [place] Bodies Not Reportable 09/07/16 13:44 [place] Rings Not Reportable 09/07/16 13:44 [place] Cells Not Reportable 09/07/16 13:44 Bite Cells Not Reportable 09/07/16 13:44 Crenated Cell Not Reportable 09/07/16 13:44 Elliptocytes 1+ 09/07/16 13:44 Acanthocytes (Spur) Not Reportable 09/07/16 13:44 Rouleaux Not Reportable 09/07/16 13:44 Hemoglobin C Crystals Not Reportable 09/07/16 13:44 Schistocytes Rare 09/07/16 13:44 Malaria parasites Not Reportable 09/07/16 13:44 Telly Bodies Not Reportable 09/07/16 13:44 Hem Pathologist Commnt No 09/07/16 13:44 POC ABG pH 7.368 (7.35-7.45) 09/09/16 10:20 POC ABG pCO2 25.1 (35-45) L 09/09/16 10:20 POC ABG pO2 91 (80-105) 09/09/16 10:20 POC ABG HCO3 14.5 09/09/16 10:20 POC ABG Total CO2 15 09/09/16 10:20 POC ABG O2 Sat 97 09/09/16 10:20 POC ABG Base Excess -11 09/09/16 10:20 FiO2 21 % 09/09/16 10:20 Sodium 140 mmol/L (137-145) 09/09/16 05:46 Potassium 4.1 mmol/L (3.6-5.0) 09/09/16 05:46 Chloride 110.1 mmol/L (98-107) H 09/09/16 05:46 Carbon Dioxide 16 mmol/L (22-30) L 09/09/16 05:46 Anion Gap 18 mmol/L 09/09/16 05:46 BUN 17 mg/dL (9-20) 09/09/16 05:46 Creatinine 1.1 mg/dL (0.8-1.5) 09/09/16 05:46 Estimated GFR > 60 ml/min 09/09/16 05:46 BUN/Creatinine Ratio 15.45 % 09/09/16 05:46 Glucose 92 mg/dL (75-100) 09/09/16 05:46 Lactic Acid 0.80 mmol/L (0.7-2.0) 09/07/16 13:44 Calcium 7.4 mg/dL (8.4-10.2) L 09/09/16 05:46 Total Bilirubin 0.30 mg/dL (0.1-1.2) 09/07/16 13:44 AST 13 units/L (5-40) 09/07/16 13:44 ALT < 5 units/L (7-56) L 09/07/16 13:44 Alkaline Phosphatase 51 units/L (35-129) 09/07/16 13:44 Troponin T < 0.010 ng/mL (0.00-0.029) 09/07/16 13:44 Total Protein 8.0 g/dL (6.3-8.2) 09/07/16 13:44 Albumin 2.6 g/dL (3.9-5) L 09/07/16 13:44 Albumin/Globulin Ratio 0.5 % 09/07/16 13:44
[2016-09-10 08:58] LABS: Hematocrit 22.8 % (35.5-45.6); Hemoglobin 6.8 gm/dl (11.8-15.2); Mean Corpuscular HGB Conc 30 % (32-34); Mean Corpuscular Volume 75 fl (84-94); Platelet Count 146 K/mm3 (140-440); Red Blood Count 3.03 M/mm3 (3.65-5.03); Red Cell Distribution Width 19.2 % (13.2-15.2); White Blood Count 3.3 K/mm3 (4.5-11.0)
[2016-09-10 09:02] LABS: Mean Corpuscular Hemoglobin 23 pg (28-32)
[2016-09-10 09:13] LABS: Anion Gap 17 mmol/L; Blood Urea Nitrogen 14 mg/dL (9-20); Calcium 8.2 mg/dL (8.4-10.2); Carbon Dioxide 19 mmol/L (22-30); Glucose 92 mg/dL (75-100); Potassium 4.9 mmol/L (3.6-5.0); Sodium 138 mmol/L (137-145)
[2016-09-10] MEDS: DELTASONE PO SCH (09:41)
[2016-09-10] MEDS: PEPCID PO SCH (09:42)
[2016-09-10 13:13] LABS: Basophils % (Manual) 0 % (0.0-1.8); Blastocytes % (Manual) 0 %; Eosinophils % (Manual) 0 % (0.0-4.3)
[2016-09-10 13:14] LABS: Anisocytosis 2+; Hypochromasia 1+
[2016-09-10 13:15] LABS: Acanthocytes 1+; Ovalocytes 2+; Poikilocytosis 2+; Tear Drop Cells Rare
[2016-09-10 13:16] LABS: Diff Status Complete; Large Platelets Few; Platelet Estimate Cons
[2016-09-10] MEDS: LEVAQUIN 750MG/150ML 750 MG/150 ML BAG IV SCH (14:05)
[2016-09-10] MEDS: LEVAQUIN PO SCH (15:48)
[2016-09-11 04:59] LABS: BUN/Creatinine Ratio 21.25; Blood Urea Nitrogen 17 mg/dL (9-20); Calcium 8.2 mg/dL (8.4-10.2); Carbon Dioxide 18 mmol/L (22-30); Glucose 110 mg/dL (75-100)
[2016-09-11 05:00] LABS: Anion Gap 17 mmol/L; Chloride 106.5 mmol/L (98-107); Potassium 5.3 mmol/L (3.6-5.0); Sodium 136 mmol/L (137-145)
[2016-09-11] MEDS: PEPCID PO SCH ×3 (06:04→21:15)
--- NOTE | 2016-09-11 07:03 | Progress Note ---
Assessment and Plan - Patient Problems (1) Pneumonia Current Visit: Yes Status: Acute Qualifiers: Pneumonia type: due to unspecified organism Aspiration pneumonia type: A Laterality: right Lung location: unspecified part of lung Qualified Code(s) : J18.9 - Pneumonia, unspecified organism Plan to address problem: 1. Continue empiric Bactrim and Levaquin. 2. Await results of quantiferon, sputum studies. 3. No hypoxemia. Okay to discontinue steroids. 4. Recommend bronchoscopy toward a definitive diagnosis, if limited improvement on empiric therapy. (2) AIDS Current Visit: Yes Status: Acute Plan to address problem: Request case management's assistance in getting medication records from [facility] to resume appropriate ARVs. Subjective Date of service: 09/11/16 Principal diagnosis: Pneumonia Interval history: Continued shortness of breath. No new clinical events. Objective - Constitutional Vitals: Vital Signs Temp Pulse Resp BP Pulse Ox 97.7 F 70 18 118/80 100 09/11/16 06:26 09/11/16 06:26 09/11/16 06:26 09/11/16 06:26 09/11/16 06:26 Temperature -Last 24 Hours Temperature 97.7 F Temperature 97.8 F Temperature 97.4 F Temperature 97.7 F Temperature 97.7 F Temperature 97.7 F Temperature 97.8 F Temperature 98.4 F Temperature 98.4 F Temperature 98.4 F Temperature 98.4 F Temperature 98.1 F Temperature 98.1 F Temperature 98.4 F Temperature 97.9 F Temperature 98.0 F Temperature 98.0 F Temperature 98.3 F General appearance: Present: no acute distress, other (somnolent) - EENT ENT: no thrush - Neck Neck: supple - Respiratory Respiratory: bilateral: CTA, negative: rales, rhonchi - Cardiovascular Rhythm: regular Heart Sounds: Present: S1 & S2 Extremities: No edema - Gastrointestinal General gastrointestinal: Present: soft, non-distended - Integumentary Integumentary: no rash (diffuse areas of hyperpigmentation) - Neurologic Neurologic: moves all extremities - Labs CBC & Chem 7: 09/11/16 07:48 09/11/16 04:18 Labs: Abnormal lab results 09/10/16 09/10/16 09/10/16 Range/Units 08:31 08:31 08:35 WBC 3.3 L (4.5-11.0) K/mm3 RBC 3.03 L (3.65-5.03) M/mm3 Hgb 6.8 L (11.8-15.2) gm/dl Hct 22.8 L (35.5-45.6) % MCV 75 L (84-94) fl MCH 23 L (28-32) pg MCHC 30 L (32-34) % RDW 19.2 H (13.2-15.2) % Seg Neuts % (Manual) 90.0 H (40.0-70.0) % Lymphocytes % (Manual) 6.0 L (13.4-35.0) % Lymphocytes # (Manual) 0.2 L (1.2-5.4) K/mm3 Sodium (137-145) mmol/L Potassium (3.6-5.0) mmol/L Carbon Dioxide 19 L (22-30) mmol/L Glucose (75-100) mg/dL POC Glucose (70-105) Calcium 8.2 L (8.4-10.2) mg/dL Crossmatch See Detail 09/11/16 09/11/16 Range/Units 04:18 05:53 WBC (4.5-11.0) K/mm3 RBC (3.65-5.03) M/mm3 Hgb (11.8-15.2) gm/dl Hct (35.5-45.6) % MCV (84-94) fl MCH (28-32) pg MCHC (32-34) % RDW (13.2-15.2) % Seg Neuts % (Manual) (40.0-70.0) % Lymphocytes % (Manual) (13.4-35.0) % Lymphocytes # (Manual) (1.2-5.4) K/mm3 Sodium 136 L (137-145) mmol/L Potassium 5.3 H (3.6-5.0) mmol/L Carbon Dioxide 18 L (22-30) mmol/L Glucose 110 H (75-100) mg/dL POC Glucose 123 H (70-105) Calcium 8.2 L (8.4-10.2) mg/dL Crossmatch
[2016-09-11 08:23] LABS: Basophils % (Auto) 0.2 % (0.0-1.8); Hematocrit 29.7 % (35.5-45.6); Hemoglobin 9.4 gm/dl (11.8-15.2); Mean Corpuscular HGB Conc 32 % (32-34); Mean Corpuscular Volume 77 fl (84-94); Platelet Count 147 K/mm3 (140-440); Red Blood Count 3.88 M/mm3 (3.65-5.03); Red Cell Distribution Width 19.2 % (13.2-15.2); White Blood Count 4.3 K/mm3 (4.5-11.0)
[2016-09-11 08:37] LABS: Mean Corpuscular Hemoglobin 24 pg (28-32)
[2016-09-11] MEDS: LEVAQUIN PO SCH (11:41)
[2016-09-11] MEDS: NACL 0.45% 1000 ML 1,000 ML IV SCH (11:51)
--- NOTE | 2016-09-11 13:56 | Progress Note ---
Assessment and Plan Assessment and plan: 46-year-old -Citizen Of [place] male with past medical history significant for AIDS , medication noncompliance presented to the emergency department complaining of cough and shortness of breath for the last 2 weeks associated with weight loss. He is admitted for further workup and management. PCP AIDS Noncompliance with his ART Right lower lobe pneumonia Malnutrition Leukopenia Anemia of chronic illness - Patient started on Bactrim, D/C steroid - Patient is on Levaquin - Pulmonary consult is placed for bronchoscopy - We'll get medication record from [place], patient also has a record at home and we'll get that. - ID is consult appreciated, cryptococcal antigen is negative and QuantiFERON Gold is pending - Nutrition; dietitian consulted - Patient is counseled about medication compliance - Patient's hemoglobin increased from 6.8 to 9.4 after 2 units of blood DVT prophylaxis - SCD because of anemia Disposition - We'll continue inpatient care. History Interval history: Patient was seen and evaluated this morning, he still complaining of cough productive of greenish sputum, which is the same since his admission condition. Hospitalist Physical - Physical exam Narrative exam: Not in cardiopulmonary distress. The patient is cachectic. Vital signs as documented. Head exam is unremarkable. No scleral icterus . Neck is without jugular venous distension, thyromegaly, or carotid bruits. Lungs are clear to auscultation. Cardiac exam reveals regular rate and Rhythm. First and second heart sounds normal. No murmurs, rubs or gallops. Abdominal exam reveals normal bowel sounds, no masses, no organomegaly and no aortic enlargement. Extremities are nonedematous and both femoral and pedal pulses are normal. [employer]: Alert and oriented 3. No focal weakness. - Constitutional Vitals: Temp Pulse Resp BP Pulse Ox 97.7 F 70 18 118/80 100 09/11/16 06:26 09/11/16 06:26 09/11/16 06:26 09/11/16 06:26 09/11/16 07:55 General appearance: Present: no acute distress, cachectic, disheveled Results - Labs CBC & Chem 7: 09/11/16 07:48 09/11/16 04:18 Labs: Laboratory Last Values WBC 4.3 K/mm3 (4.5-11.0) L 09/11/16 07:48 RBC 3.88 M/mm3 (3.65-5.03) 09/11/16 07:48 Hgb 9.4 gm/dl (11.8-15.2) L 09/11/16 07:48 Hct 29.7 % (35.5-45.6) L D 09/11/16 07:48 MCV 77 fl (84-94) L 09/11/16 07:48 MCH 24 pg (28-32) L 09/11/16 07:48 MCHC 32 % (32-34) 09/11/16 07:48 RDW 19.2 % (13.2-15.2) H 09/11/16 07:48 Plt Count 147 K/mm3 (140-440) 09/11/16 07:48 Lymph % (Auto) 6.8 % (13.4-35.0) L 09/11/16 07:48 [place] % (Auto) 8.0 % (0.0-7.3) H 09/11/16 07:48 Eos % (Auto) 0.0 % (0.0-4.3) 09/11/16 07:48 Baso % (Auto) 0.2 % (0.0-1.8) 09/11/16 07:48 Lymph # 0.3 K/mm3 (1.2-5.4) L 09/11/16 07:48 [place] # 0.3 K/mm3 (0.0-0.8) 09/11/16 07:48 Eos # 0.0 K/mm3 (0.0-0.4) 09/11/16 07:48 Baso # 0.0 K/mm3 (0.0-0.1) 09/11/16 07:48 Add Manual Diff Complete 09/10/16 08:31 Total Counted 100 09/10/16 08:31 Seg Neutrophils % 85.0 % (40.0-70.0) H 09/11/16 07:48 Seg Neuts % (Manual) 90.0 % (40.0-70.0) H 09/10/16 08:31 Band Neutrophils % 0 % 09/10/16 08:31 Lymphocytes % (Manual) 6.0 % (13.4-35.0) L 09/10/16 08:31 Reactive Lymphs % (Man) 1.0 % 09/10/16 08:31 Monocytes % (Manual) 3.0 % (0.0-7.3) 09/10/16 08:31 Eosinophils % (Manual) 0 % (0.0-4.3) 09/10/16 08:31 Basophils % (Manual) 0 % (0.0-1.8) 09/10/16 08:31 Metamyelocytes % 0 % 09/10/16 08:31 Myelocytes % 0 % 09/10/16 08:31 Promyelocytes % 0 % 09/10/16 08:31 Blast Cells % 0 % 09/10/16 08:31 Nucleated RBC % Not Reportable 09/10/16 08:31 Seg Neutrophils # 3.6 K/mm3 (1.8-7.7) 09/11/16 07:48 Seg Neutrophils # Man 3.0 K/mm3 (1.8-7.7) 09/10/16 08:31 Band Neutrophils # 0.0 K/mm3 09/10/16 08:31 Lymphocytes # (Manual) 0.2 K/mm3 (1.2-5.4) L 09/10/16 08:31 Abs React Lymphs (Man) 0.0 K/mm3 09/10/16 08:31 Monocytes # (Manual) 0.1 K/mm3 (0.0-0.8) 09/10/16 08:31 Eosinophils # (Manual) 0.0 K/mm3 (0.0-0.4) 09/10/16 08:31 Basophils # (Manual) 0.0 K/mm3 (0.0-0.1) 09/10/16 08:31 Metamyelocytes # 0.0 K/mm3 09/10/16 08:31 Myelocytes # 0.0 K/mm3 09/10/16 08:31 Promyelocytes # 0.0 K/mm3 09/10/16 08:31 Blast Cells # 0.0 K/mm3 09/10/16 08:31 WBC Morphology Not Reportable 09/10/16 08:31 Hypersegmented Neuts Not Reportable 09/10/16 08:31 Hyposegmented Neuts Not Reportable 09/10/16 08:31 Hypogranular Neuts Not Reportable 09/10/16 08:31 Smudge Cells Not Reportable 09/10/16 08:31 Toxic Granulation Not Reportable 09/10/16 08:31 Toxic Vacuolation Not Reportable 09/10/16 08:31 Dohle Bodies Not Reportable 09/10/16 08:31 Pelger-Huet Anomaly Not Reportable 09/10/16 08:31 Tamia Rods Not Reportable 09/10/16 08:31 Platelet Estimate Cons 09/10/16 08:31 Clumped Platelets Not Reportable 09/10/16 08:31 Plt Clumps, EDTA Not Reportable 09/10/16 08:31 Large Platelets Few 09/10/16 08:31 Giant Platelets Not Reportable 09/10/16 08:31 Platelet Satelliting Not Reportable 09/10/16 08:31 Plt Morphology Comment Not Reportable 09/10/16 08:31 RBC Morphology Not Reportable 09/10/16 08:31 Dimorphic RBCs Not Reportable 09/10/16 08:31 Polychromasia Not Reportable 09/10/16 08:31 Hypochromasia 1+ 09/10/16 08:31 Poikilocytosis 2+ 09/10/16 08:31 Anisocytosis 2+ 09/10/16 08:31 Microcytosis Not Reportable 09/10/16 08:31 Macrocytosis Not Reportable 09/10/16 08:31 Spherocytes Not Reportable 09/10/16 08:31 Pappenheimer Bodies Not Reportable 09/10/16 08:31 Sickle Cells Not Reportable 09/10/16 08:31 Target Cells Not Reportable 09/10/16 08:31 Tear Drop Cells Rare 09/10/16 08:31 Ovalocytes 2+ 09/10/16 08:31 Helmet Cells Not Reportable 09/10/16 08:31 [place] Bodies Not Reportable 09/10/16 08:31 [place] Rings Not Reportable 09/10/16 08:31 Dianna Cells Not Reportable 09/10/16 08:31 Bite Cells Not Reportable 09/10/16 08:31 Crenated Cell Not Reportable 09/10/16 08:31 Elliptocytes Not Reportable 09/10/16 08:31 Acanthocytes (Spur) 1+ 09/10/16 08:31 Rouleaux Not Reportable 09/10/16 08:31 Hemoglobin C Crystals Not Reportable 09/10/16 08:31 Schistocytes Not Reportable 09/10/16 08:31 Malaria parasites Not Reportable 09/10/16 08:31 Telly Bodies Not Reportable 09/10/16 08:31 Hem Pathologist Commnt No 09/10/16 08:31 POC ABG pH 7.368 (7.35-7.45) 09/09/16 10:20 POC ABG pCO2 25.1 (35-45) L 09/09/16 10:20 POC ABG pO2 91 (80-105) 09/09/16 10:20 POC ABG HCO3 14.5 09/09/16 10:20 POC ABG Total CO2 15 09/09/16 10:20 POC ABG O2 Sat 97 09/09/16 10:20 POC ABG Base Excess -11 09/09/16 10:20 FiO2 21 % 09/09/16 10:20 Sodium 136 mmol/L (137-145) L 09/11/16 04:18 Potassium 5.3 mmol/L (3.6-5.0) H 09/11/16 04:18 Chloride 106.5 mmol/L (98-107) 09/11/16 04:18 Carbon Dioxide 18 mmol/L (22-30) L 09/11/16 04:18 Anion Gap 17 mmol/L 09/11/16 04:18 BUN 17 mg/dL (9-20) 09/11/16 04:18 Creatinine 0.8 mg/dL (0.8-1.5) 09/11/16 04:18 Estimated GFR > 60 ml/min 09/11/16 04:18 BUN/Creatinine Ratio 21.25 % 09/11/16 04:18 Glucose 110 mg/dL (75-100) H 09/11/16 04:18 POC Glucose 123 (70-105) H 09/11/16 05:53 Lactic Acid 0.80 mmol/L (0.7-2.0) 09/07/16 13:44 Calcium 8.2 mg/dL (8.4-10.2) L 09/11/16 04:18 Total Bilirubin 0.30 mg/dL (0.1-1.2) 09/07/16 13:44 AST 13 units/L (5-40) 09/07/16 13:44 ALT < 5 units/L (7-56) L 09/07/16 13:44 Alkaline Phosphatase 51 units/L (35-129) 09/07/16 13:44 Troponin T < 0.010 ng/mL (0.00-0.029) 09/07/16 13:44 Total Protein 8.0 g/dL (6.3-8.2) 09/07/16 13:44 Albumin 2.6 g/dL (3.9-5) L 09/07/16 13:44 Albumin/Globulin Ratio 0.5 % 09/07/16 13:44 Blood Type A POSITIVE 09/10/16 08:35 Antibody Screen TNR 09/10/16 08:35 WALE Antibody Screen Negative 09/10/16 08:35 Crossmatch See Detail 09/10/16 08:35 Hemoglobin increased from 6.8-9.2 after 2 units of blood.
--- NOTE | 2016-09-11 19:13 | Event Note ---
Date: 09/11/16 Dr. Menjivar thank you for asking me to participate in the care of this patient. Full consultation Dictated. Consultation dictation number; [id number] This is 46 year old , [place] male admitted with pain on swallowing.Denies chest pain, shortness of breath,fever or chills.History of HIV +. Following with infectious disease doctor or AIDs specialist.Patient has history of Hypertension.Denies smoking alcohol or drug abuse or smoking. 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 Lost little weight.Says apetite is OK. O2 Saturation 100% on room air.Patients chest xray reported subtle right upper lobe infiltrate. Patient has no fever, no leukocytosis, No cough, no shortness of breath IMMPRESSION; 1. HIV/AIDS 2. HTN 3. Anemia. 4. Pain on swallowing. PLAN: 1. Continue Empirically Levaquine and Bactrim. 2. Recommend to consult gastroenterology for pain on swallowing. 3. Recommend to consult infectious diseases. 4. Based on clinical symptoms presented, Bronchoscopy not warranted at this time but we will follow the patient with you.
[2016-09-11] MEDS: BACTRIM IV SCH ×3 (20:55→20:58)
[2016-09-11] MEDS: D5W IV SCH ×3 (20:55→20:58)
[2016-09-12 05:15] LABS: Basophils % (Auto) 0.4 % (0.0-1.8); Eosinophils % (Auto) 0.1 % (0.0-4.3); Hematocrit 30.1 % (35.5-45.6); Hemoglobin 9.2 gm/dl (11.8-15.2); Mean Corpuscular HGB Conc 31 % (32-34); Mean Corpuscular Volume 77 fl (84-94); Platelet Count 159 K/mm3 (140-440); Red Blood Count 3.91 M/mm3 (3.65-5.03); White Blood Count 2.5 K/mm3 (4.5-11.0)
[2016-09-12 05:16] LABS: Mean Corpuscular Hemoglobin 24 pg (28-32)
[2016-09-12 05:22] LABS: Anion Gap 16 mmol/L; BUN/Creatinine Ratio 26.25; Blood Urea Nitrogen 21 mg/dL (9-20); Calcium 8.1 mg/dL (8.4-10.2); Carbon Dioxide 19 mmol/L (22-30); Chloride 102.6 mmol/L (98-107); Glucose 77 mg/dL (75-100); Potassium 4.8 mmol/L (3.6-5.0); Sodium 133 mmol/L (137-145)
[2016-09-12] MEDS: NACL 0.45% 1000 ML 1,000 ML IV SCH (07:19)
--- NOTE | 2016-09-12 08:18 | Progress Note ---
Assessment and Plan - Patient Problems (1) Pneumonia Current Visit: Yes Status: Acute Qualifiers: Pneumonia type: due to unspecified organism Aspiration pneumonia type: A Laterality: right Lung location: unspecified part of lung Qualified Code(s) : J18.9 - Pneumonia, unspecified organism Plan to address problem: Okay to commit to a presumptive PjP course with oral Bactrim 2 DS tabs q8h to complete 21 days. WIll change therapy today. Complete 5-7 days of oral Levaquin 500mg daily. Discharge is okay from an ID standpoint. (2) AIDS Current Visit: Yes Status: Acute Plan to address problem: Follow-up at [facility] to resume HAART. Subjective Date of service: 09/12/16 Principal diagnosis: Pneumonia Interval history: Singultus complaints. No new issues. Objective - Constitutional Vitals: Vital Signs Temp Pulse Resp BP Pulse Ox 98.0 F 75 20 100/61 100 09/12/16 03:05 09/12/16 03:05 09/12/16 03:05 09/12/16 03:05 09/12/16 03:05 Temperature -Last 24 Hours Temperature 98.0 F Temperature 98.3 F Temperature 98.1 F Temperature 98.0 F General appearance: Present: no acute distress, cachectic, disheveled - EENT Eyes: no scleral icterus, no conjunctival injection ENT: clear oral mucosa, no thrush - Respiratory Respiratory: bilateral: CTA, negative: rales, rhonchi - Cardiovascular Rhythm: regular Heart Sounds: Present: S1 & S2 Extremities: No edema - Gastrointestinal General gastrointestinal: Present: soft, non-distended - Integumentary Integumentary: no jaundice, no rash - Neurologic Neurologic: no focal deficits, moves all extremities - Psychiatric Psychiatric: appropriate mood/affect - Labs CBC & Chem 7: 09/12/16 04:19 09/12/16 04:19 Labs: Abnormal lab results 09/11/16 09/12/16 09/12/16 Range/Units 07:48 04:19 04:19 WBC 4.3 L 2.5 L (4.5-11.0) K/mm3 Hgb 9.4 L 9.2 L (11.8-15.2) gm/dl Hct 29.7 L D 30.1 L (35.5-45.6) % MCV 77 L 77 L (84-94) fl MCH 24 L 24 L (28-32) pg MCHC 31 L (32-34) % RDW 19.2 H 19.0 H (13.2-15.2) % Lymph % (Auto) 6.8 L 12.4 L (13.4-35.0) % [place] % (Auto) 8.0 H 11.9 H (0.0-7.3) % Lymph # 0.3 L 0.3 L (1.2-5.4) K/mm3 Seg Neutrophils % 85.0 H 75.2 H (40.0-70.0) % Sodium 133 L (137-145) mmol/L Carbon Dioxide 19 L (22-30) mmol/L BUN 21 H (9-20) mg/dL Calcium 8.1 L (8.4-10.2) mg/dL
[2016-09-12] MEDS: BACTRIM DS PO SCH ×3 (10:25→21:50)
[2016-09-12] MEDS: DIFLUCAN PO SCH (10:26)
[2016-09-12] MEDS: LEVAQUIN PO SCH (10:26)
[2016-09-12] MEDS: PEPCID PO SCH ×2 (10:26→21:51)
--- NOTE | 2016-09-12 10:44 | Gastroenterology Consultation ---
<NORMA MONTESINOS - Last Filed: 09/12/16 10:51> History of Present Illness - Reason for Consult Consult date: 09/12/16 oral thrush, pain with swallowing Requesting physician: MAGALI ESPINOSA - History of Present Illness Patient is a 46 y/o male admitted for SOB. He was dx with pneumonia, being followed by ID. PMH significant for AIDS, asthma, HTN, and wt loss. Patient resting in bed this morning watching TV. No acute distress noted. He is noted to have oral thrush and is being treated currently with diflucan. He also reports dysphagia with solid foods (mainly meats) x 2 weeks. He admits to being able to eat soft foods and liquids without difficulty and tolerated eating breakfast this morning well. He denies odynophagia, heartburn, regurgitation, abd pain, or N/V. No previous endoscopy. No ETOH or tobacco use. Past History Past Medical History: HIV/AIDS, other (asthma) Past Surgical History: No surgical history, Other (reviewed) Social history: single, Lives alone. denies: smoking, alcohol abuse, prescription drug abuse Family history: no significant family history, other (reviewed) Medications and Allergies Allergies Allergy/AdvReac Type Severity Reaction Status Date / Time No Known Allergies Allergy Verified 12/07/15 04:53 Home Medications Medication Instructions Recorded Confirmed Last Taken Type Unobtainable 09/07/16 09/07/16 Unknown History Active Meds: Active Medications Acetaminophen (Tylenol) 650 mg PO Q4H PRN PRN Reason: Pain MILD(1-3)/Fever >100.5/GUILLORY Albuterol (Proventil) 2.5 mg IH Q6HRT PRN PRN Reason: Wheezing Famotidine (Pepcid) 20 mg PO BID [facility] Last Admin: 09/12/16 10:26 Dose: 20 mg Fluconazole (Diflucan) 200 mg PO QDAY [facility] Last Admin: 09/12/16 10:26 Dose: 200 mg Sodium Chloride (Nacl 0.45% 1000 Ml) 1,000 mls @ 42 mls/hr IV DIRECT [facility] Last Admin: 09/12/16 07:19 Dose: 42 mls/hr Levofloxacin (Levaquin) 750 mg PO Q24HR [facility] Last Admin: 09/12/16 10:26 Dose: 750 mg Ondansetron HCl (Zofran) 4 mg IV Q8H PRN PRN Reason: N/V unrelieved by Regelisabet Trimethoprim/Sulfamethoxazole (Bactrim Ds) 2 each PO Q8HR [facility] Last Admin: 09/12/16 10:25 Dose: 2 each Review of Systems - Review of Systems All systems: negative Constitutional: weight loss Cardiovascular: shortness of breath Gastrointestinal: other (dysphagia) Exam - Constitutional Vital Signs: Temp Pulse Resp BP Pulse Ox 97.9 F 80 20 90/57 97 09/12/16 07:00 09/12/16 07:00 09/12/16 07:00 09/12/16 07:00 09/12/16 07:00 General appearance: no acute distress, cachectic, temporal muscle wasting, disheveled - EENT Eyes: PERRL, EOM intact ENT: hearing intact, poor dentition, thrush - Neck Neck: normal ROM - Respiratory Respiratory: bilateral: CTA (anterior) - Cardiovascular Rhythm: regular Heart Sounds: Present: S1 & S2 Extremities: No edema - Gastrointestinal General gastrointestinal: Present: soft, non-tender, non-distended, normal bowel sounds - Integumentary Integumentary: Present: warm, dry, rash - Neurologic Neurological: alert and oriented x3 - Psychiatric Psychiatric: cooperative - Labs CBC & Chem 7: 09/12/16 04:19 09/12/16 04:19 Lab Results: Laboratory Results - last 24 hr 09/12/16 09/12/16 04:19 04:19 WBC 2.5 L RBC 3.91 Hgb 9.2 L Hct 30.1 L MCV 77 L MCH 24 L MCHC 31 L RDW 19.0 H Plt Count 159 Lymph % (Auto) 12.4 L [place] % (Auto) 11.9 H Eos % (Auto) 0.1 Baso % (Auto) 0.4 Lymph # 0.3 L [place] # 0.3 Eos # 0.0 Baso # 0.0 Seg Neutrophils % 75.2 H Seg Neutrophils # 1.9 Sodium 133 L Potassium 4.8 Chloride 102.6 Carbon Dioxide 19 L Anion Gap 16 BUN 21 H Creatinine 0.8 Estimated GFR > 60 BUN/Creatinine Ratio 26.25 Glucose 77 Calcium 8.1 L Assessment and Plan 1. dysphagia 2. oral thrush 3. pneumonia- followed by ID 4. AIDS -afebrile -continue diflucan -dysphagia- will schedule for EGD in am -NPO after MN -PT/INR in am -will follow <MAKSIM MERINO - Last Filed: 09/12/16 11:03> Medications and Allergies Active Meds: Active Medications Acetaminophen (Tylenol) 650 mg PO Q4H PRN PRN Reason: Pain MILD(1-3)/Fever >100.5/GUILLORY Albuterol (Proventil) 2.5 mg IH Q6HRT PRN PRN Reason: Wheezing Famotidine (Pepcid) 20 mg PO BID [facility] Last Admin: 09/12/16 10:26 Dose: 20 mg Fluconazole (Diflucan) 200 mg PO QDAY [facility] Last Admin: 09/12/16 10:26 Dose: 200 mg Sodium Chloride (Nacl 0.45% 1000 Ml) 1,000 mls @ 42 mls/hr IV DIRECT [facility] Last Admin: 09/12/16 07:19 Dose: 42 mls/hr Levofloxacin (Levaquin) 750 mg PO Q24HR [facility] Last Admin: 09/12/16 10:26 Dose: 750 mg Ondansetron HCl (Zofran) 4 mg IV Q8H PRN PRN Reason: N/V unrelieved by Regelisabet Trimethoprim/Sulfamethoxazole (Bactrim Ds) 2 each PO Q8HR [facility] Last Admin: 09/12/16 10:25 Dose: 2 each Exam - Constitutional Vital Signs: Temp Pulse Resp BP Pulse Ox 97.9 F 80 20 90/57 97 09/12/16 07:00 09/12/16 07:00 09/12/16 07:00 09/12/16 07:00 09/12/16 07:00 - Labs CBC & Chem 7: 09/12/16 04:19 09/12/16 04:19 Lab Results: Laboratory Results - last 24 hr 09/12/16 09/12/16 04:19 04:19 WBC 2.5 L RBC 3.91 Hgb 9.2 L Hct 30.1 L MCV 77 L MCH 24 L MCHC 31 L RDW 19.0 H Plt Count 159 Lymph % (Auto) 12.4 L [place] % (Auto) 11.9 H Eos % (Auto) 0.1 Baso % (Auto) 0.4 Lymph # 0.3 L [place] # 0.3 Eos # 0.0 Baso # 0.0 Seg Neutrophils % 75.2 H Seg Neutrophils # 1.9 Sodium 133 L Potassium 4.8 Chloride 102.6 Carbon Dioxide 19 L Anion Gap 16 BUN 21 H Creatinine 0.8 Estimated GFR > 60 BUN/Creatinine Ratio 26.25 Glucose 77 Calcium 8.1 L Assessment and Plan Patient seen and examined. Agree with note by Norma Montesinos. Will plan for EGD tomorrow for further evaluation of dysphagia/odynophagia in IC patient (not much improvement with diflucan).
--- NOTE | 2016-09-12 11:02 | Progress Note ---
Assessment and Plan Assessment and plan: 46-year-old -A[place]ij[place] male with past medical history significant for AIDS , medication noncompliance presented to the emergency department complaining of cough and shortness of breath for the last 2 weeks associated with weight loss. He is admitted for further workup and management. Patient was off his HIV medications for 6 months and patient needs to go back to [facility] to restart his medications. PCP Oropharyngeal candidiasis AIDS Noncompliance with his ART Right lower lobe pneumonia Malnutrition Leukopenia Anemia of chronic illness - Patient is on Bactrim, Levaquin, and diflucan - GI consulted and will do EGD tomorrow morning - Pulmonary consulted and recommended no bronchoscopy needed at this time - Patient is advised to go back to [place] to restart his ART. - ID is consult appreciated, cryptococcal antigen is negative and QuantiFERON Gold is pending - Nutrition; dietitian consulted - Patient is counseled about medication compliance - Patient's hemoglobin is stable DVT prophylaxis - SCD because of anemia Disposition - Discharge tomorrow after EGD. History Interval history: Patient was seen and evaluated this morning, he still complaining of dysphagia. Hospitalist Physical - Physical exam Narrative exam: Not in cardiopulmonary distress. The patient is cachectic. Vital signs as documented. Head exam is unremarkable. No scleral icterus . Whitish coated tongue and buccal mucosa. Neck is without jugular venous distension, thyromegaly, or carotid bruits. Lungs are clear to auscultation. Cardiac exam reveals regular rate and Rhythm. First and second heart sounds normal. No murmurs, rubs or gallops. Abdominal exam reveals normal bowel sounds, no masses, no organomegaly and no aortic enlargement. Extremities are nonedematous and both femoral and pedal pulses are normal. 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 No focal weakness. - Constitutional Vitals: Temp Pulse Resp BP Pulse Ox 97.9 F 80 20 90/57 97 09/12/16 07:00 09/12/16 07:00 09/12/16 07:00 09/12/16 07:00 09/12/16 07:00 General appearance: Present: no acute distress, other (somnolent) Results - Labs CBC & Chem 7: 09/12/16 04:19 09/12/16 04:19 Labs: Laboratory Last Values WBC 2.5 K/mm3 (4.5-11.0) L 09/12/16 04:19 RBC 3.91 M/mm3 (3.65-5.03) 09/12/16 04:19 Hgb 9.2 gm/dl (11.8-15.2) L 09/12/16 04:19 Hct 30.1 % (35.5-45.6) L 09/12/16 04:19 MCV 77 fl (84-94) L 09/12/16 04:19 MCH 24 pg (28-32) L 09/12/16 04:19 MCHC 31 % (32-34) L 09/12/16 04:19 RDW 19.0 % (13.2-15.2) H 09/12/16 04:19 Plt Count 159 K/mm3 (140-440) 09/12/16 04:19 Lymph % (Auto) 12.4 % (13.4-35.0) L 09/12/16 04:19 Will % (Auto) 11.9 % (0.0-7.3) H 09/12/16 04:19 Eos % (Auto) 0.1 % (0.0-4.3) 09/12/16 04:19 Baso % (Auto) 0.4 % (0.0-1.8) 09/12/16 04:19 Lymph # 0.3 K/mm3 (1.2-5.4) L 09/12/16 04:19 Will # 0.3 K/mm3 (0.0-0.8) 09/12/16 04:19 Eos # 0.0 K/mm3 (0.0-0.4) 09/12/16 04:19 Baso # 0.0 K/mm3 (0.0-0.1) 09/12/16 04:19 Add Manual Diff Complete 09/10/16 08:31 Total Counted 100 09/10/16 08:31 Seg Neutrophils % 75.2 % (40.0-70.0) H 09/12/16 04:19 Seg Neuts % (Manual) 90.0 % (40.0-70.0) H 09/10/16 08:31 Band Neutrophils % 0 % 09/10/16 08:31 Lymphocytes % (Manual) 6.0 % (13.4-35.0) L 09/10/16 08:31 Reactive Lymphs % (Man) 1.0 % 09/10/16 08:31 Monocytes % (Manual) 3.0 % (0.0-7.3) 09/10/16 08:31 Eosinophils % (Manual) 0 % (0.0-4.3) 09/10/16 08:31 Basophils % (Manual) 0 % (0.0-1.8) 09/10/16 08:31 Metamyelocytes % 0 % 09/10/16 08:31 Myelocytes % 0 % 09/10/16 08:31 Promyelocytes % 0 % 09/10/16 08:31 Blast Cells % 0 % 09/10/16 08:31 Nucleated RBC % Not Reportable 09/10/16 08:31 Seg Neutrophils # 1.9 K/mm3 (1.8-7.7) 09/12/16 04:19 Seg Neutrophils # Man 3.0 K/mm3 (1.8-7.7) 09/10/16 08:31 Band Neutrophils # 0.0 K/mm3 09/10/16 08:31 Lymphocytes # (Manual) 0.2 K/mm3 (1.2-5.4) L 09/10/16 08:31 Abs React Lymphs (Man) 0.0 K/mm3 09/10/16 08:31 Monocytes # (Manual) 0.1 K/mm3 (0.0-0.8) 09/10/16 08:31 Eosinophils # (Manual) 0.0 K/mm3 (0.0-0.4) 09/10/16 08:31 Basophils # (Manual) 0.0 K/mm3 (0.0-0.1) 09/10/16 08:31 Metamyelocytes # 0.0 K/mm3 09/10/16 08:31 Myelocytes # 0.0 K/mm3 09/10/16 08:31 Promyelocytes # 0.0 K/mm3 09/10/16 08:31 Blast Cells # 0.0 K/mm3 09/10/16 08:31 WBC Morphology Not Reportable 09/10/16 08:31 Hypersegmented Neuts Not Reportable 09/10/16 08:31 Hyposegmented Neuts Not Reportable 09/10/16 08:31 Hypogranular Neuts Not Reportable 09/10/16 08:31 Smudge Cells Not Reportable 09/10/16 08:31 Toxic Granulation Not Reportable 09/10/16 08:31 Toxic Vacuolation Not Reportable 09/10/16 08:31 Dohle Bodies Not Reportable 09/10/16 08:31 Pelger-Huet Anomaly Not Reportable 09/10/16 08:31 Tamia Rods Not Reportable 09/10/16 08:31 Platelet Estimate Cons 09/10/16 08:31 Clumped Platelets Not Reportable 09/10/16 08:31 Plt Clumps, EDTA Not Reportable 09/10/16 08:31 Large Platelets Few 09/10/16 08:31 Giant Platelets Not Reportable 09/10/16 08:31 Platelet Satelliting Not Reportable 09/10/16 08:31 Plt Morphology Comment Not Reportable 09/10/16 08:31 RBC Morphology Not Reportable 09/10/16 08:31 Dimorphic RBCs Not Reportable 09/10/16 08:31 Polychromasia Not Reportable 09/10/16 08:31 Hypochromasia 1+ 09/10/16 08:31 Poikilocytosis 2+ 09/10/16 08:31 Anisocytosis 2+ 09/10/16 08:31 Microcytosis Not Reportable 09/10/16 08:31 Macrocytosis Not Reportable 09/10/16 08:31 Spherocytes Not Reportable 09/10/16 08:31 Pappenheimer Bodies Not Reportable 09/10/16 08:31 Sickle Cells Not Reportable 09/10/16 08:31 Target Cells Not Reportable 09/10/16 08:31 Tear Drop Cells Rare 09/10/16 08:31 Ovalocytes 2+ 09/10/16 08:31 Helmet Cells Not Reportable 09/10/16 08:31 Arizmendi-Archbold Bodies Not Reportable 09/10/16 08:31 Cooks Rings Not Reportable 09/10/16 08:31 [place] Cells Not Reportable 09/10/16 08:31 Bite Cells Not Reportable 09/10/16 08:31 Crenated Cell Not Reportable 09/10/16 08:31 Elliptocytes Not Reportable 09/10/16 08:31 Acanthocytes (Spur) 1+ 09/10/16 08:31 Rouleaux Not Reportable 09/10/16 08:31 Hemoglobin C Crystals Not Reportable 09/10/16 08:31 Schistocytes Not Reportable 09/10/16 08:31 Malaria parasites Not Reportable 09/10/16 08:31 Telly Bodies Not Reportable 09/10/16 08:31 Hem Pathologist Commnt No 09/10/16 08:31 POC ABG pH 7.368 (7.35-7.45) 09/09/16 10:20 POC ABG pCO2 25.1 (35-45) L 09/09/16 10:20 POC ABG pO2 91 (80-105) 09/09/16 10:20 POC ABG HCO3 14.5 09/09/16 10:20 POC ABG Total CO2 15 09/09/16 10:20 POC ABG O2 Sat 97 09/09/16 10:20 POC ABG Base Excess -11 09/09/16 10:20 FiO2 21 % 09/09/16 10:20 Sodium 133 mmol/L (137-145) L 09/12/16 04:19 Potassium 4.8 mmol/L (3.6-5.0) 09/12/16 04:19 Chloride 102.6 mmol/L (98-107) 09/12/16 04:19 Carbon Dioxide 19 mmol/L (22-30) L 09/12/16 04:19 Anion Gap 16 mmol/L 09/12/16 04:19 BUN 21 mg/dL (9-20) H 09/12/16 04:19 Creatinine 0.8 mg/dL (0.8-1.5) 09/12/16 04:19 Estimated GFR > 60 ml/min 09/12/16 04:19 BUN/Creatinine Ratio 26.25 % 09/12/16 04:19 Glucose 77 mg/dL (75-100) 09/12/16 04:19 POC Glucose 123 (70-105) H 09/11/16 05:53 Lactic Acid 0.80 mmol/L (0.7-2.0) 09/07/16 13:44 Calcium 8.1 mg/dL (8.4-10.2) L 09/12/16 04:19 Total Bilirubin 0.30 mg/dL (0.1-1.2) 09/07/16 13:44 AST 13 units/L (5-40) 09/07/16 13:44 ALT < 5 units/L (7-56) L 09/07/16 13:44 Alkaline Phosphatase 51 units/L (35-129) 09/07/16 13:44 Troponin T < 0.010 ng/mL (0.00-0.029) 09/07/16 13:44 Total Protein 8.0 g/dL (6.3-8.2) 09/07/16 13:44 Albumin 2.6 g/dL (3.9-5) L 09/07/16 13:44 Albumin/Globulin Ratio 0.5 % 09/07/16 13:44 Blood Type A POSITIVE 09/10/16 08:35 Antibody Screen TNR 09/10/16 08:35 WALE Antibody Screen Negative 09/10/16 08:35 Crossmatch See Detail 09/10/16 08:35
--- NOTE | 2016-09-12 14:11 | Progress Note ---
Assessment and Plan Patient resting on room air. No complaint of chest pain or shortness of breath.O2 saturation 07% on room air. - Patient Problems (1) Odynophagia Current Visit: No Status: Acute Plan to address problem: Recommend to consult Gastroenterology. (2) HIV disease Current Visit: No Status: Chronic Plan to address problem: Management as per infectious diseases. (3) Hypertension Current Visit: Yes Status: Acute Qualifiers: Hypertension type: H Plan to address problem: Management as per primary care. (4) Pneumonia Current Visit: Yes Status: Acute Qualifiers: Pneumonia type: due to unspecified organism Aspiration pneumonia type: A Laterality: right Lung location: unspecified part of lung Qualified Code(s) : J18.9 - Pneumonia, unspecified organism Plan to address problem: Questionable infiltrate on the chest xray. Patient has no fever,no cough, no chills, no leukocytosis. Patient empirically on antibiotics Levaquine and Bactrim. Subjective Date of service: 09/12/16 Principal diagnosis: Pneumonia Interval history: Patient resting on room air. No complaint of chest pain or shortness of breath.O2 saturation 07% on room air. Objective Vital Signs - 12hr 09/12/16 09/12/16 09/12/16 02:59 03:05 07:00 Temperature 98.0 F 97.9 F Pulse Rate 84 Pulse Rate [ 75 80 From Monitor] Respiratory 20 20 Rate Blood Pressure 100/61 90/57 [Left Arm] O2 Sat by Pulse 100 97 Oximetry Constitutional: no acute distress, alert, other (Weak) Eyes: non-icteric ENT: oropharynx moist Neck: supple, no lymphadenopathy Ascultation: Bilateral: clear Cardiovascular: regular rate and rhythm Gastrointestinal: normoactive bowel sounds, soft, non-tender Integumentary: normal Extremities: no cyanosis, no edema Neurologic: normal mental status, non-focal exam, pupils equal and round, CN II- XII normal Psychiatric: mood appropriate CBC and BMP: 09/12/16 04:19 09/12/16 04:19 ABG, PT/INR, D-dimer: ABG POC ABG pH 7.368 (7.35-7.45) 09/09/16 10:20 POC ABG pCO2 25.1 (35-45) L 09/09/16 10:20 POC ABG pO2 91 (80-105) 09/09/16 10:20 POC ABG HCO3 14.5 09/09/16 10:20 POC ABG Total CO2 15 09/09/16 10:20 POC ABG O2 Sat 97 09/09/16 10:20 Abnormal lab findings: Abnormal Labs 09/09/16 09/09/16 09/09/16 05:46 05:46 10:20 WBC 3.2 L RBC 2.76 L Hgb 6.2 L Hct 20.8 L MCV 75 L MCH 23 L MCHC 30 L RDW 18.9 H Plt Count 139 L Lymph % (Auto) 12.3 L [place] % (Auto) 9.8 H Lymph # 0.4 L Seg Neutrophils % 77.7 H Seg Neuts % (Manual) Lymphocytes % (Manual) Lymphocytes # (Manual) POC ABG pCO2 25.1 L Sodium Potassium Chloride 110.1 H Carbon Dioxide 16 L BUN Glucose POC Glucose Calcium 7.4 L Crossmatch 09/10/16 09/10/16 09/10/16 08:31 08:31 08:35 WBC 3.3 L RBC 3.03 L Hgb 6.8 L Hct 22.8 L MCV 75 L MCH 23 L MCHC 30 L RDW 19.2 H Plt Count Lymph % (Auto) [place] % (Auto) Lymph # Seg Neutrophils % Seg Neuts % (Manual) 90.0 H Lymphocytes % (Manual) 6.0 L Lymphocytes # (Manual) 0.2 L POC ABG pCO2 Sodium Potassium Chloride Carbon Dioxide 19 L BUN Glucose POC Glucose Calcium 8.2 L Crossmatch See Detail 09/11/16 09/11/16 09/11/16 04:18 05:53 07:48 WBC 4.3 L RBC Hgb 9.4 L Hct 29.7 L D MCV 77 L MCH 24 L MCHC RDW 19.2 H Plt Count Lymph % (Auto) 6.8 L [place] % (Auto) 8.0 H Lymph # 0.3 L Seg Neutrophils % 85.0 H Seg Neuts % (Manual) Lymphocytes % (Manual) Lymphocytes # (Manual) POC ABG pCO2 Sodium 136 L Potassium 5.3 H Chloride Carbon Dioxide 18 L BUN Glucose 110 H POC Glucose 123 H Calcium 8.2 L Crossmatch 09/12/16 09/12/16 04:19 04:19 WBC 2.5 L RBC Hgb 9.2 L Hct 30.1 L MCV 77 L MCH 24 L MCHC 31 L RDW 19.0 H Plt Count Lymph % (Auto) 12.4 L [place] % (Auto) 11.9 H Lymph # 0.3 L Seg Neutrophils % 75.2 H Seg Neuts % (Manual) Lymphocytes % (Manual) Lymphocytes # (Manual) POC ABG pCO2 Sodium 133 L Potassium Chloride Carbon Dioxide 19 L BUN 21 H Glucose POC Glucose Calcium 8.1 L Crossmatch
[2016-09-13] MEDS: NACL 0.45% 1000 ML 1,000 ML IV SCH (03:26)
[2016-09-13 05:40] LABS: Basophils % (Auto) 0.4 % (0.0-1.8); Hematocrit 33.9 % (35.5-45.6); Hemoglobin 10.6 gm/dl (11.8-15.2); Mean Corpuscular HGB Conc 31 % (32-34); Mean Corpuscular Volume 77 fl (84-94); Platelet Count 151 K/mm3 (140-440); Red Blood Count 4.41 M/mm3 (3.65-5.03); Red Cell Distribution Width 19.4 % (13.2-15.2); White Blood Count 2.4 K/mm3 (4.5-11.0)
[2016-09-13 05:49] LABS: Anion Gap 18 mmol/L; BUN/Creatinine Ratio 15.83; Blood Urea Nitrogen 19 mg/dL (9-20); Calcium 8.3 mg/dL (8.4-10.2); Carbon Dioxide 22 mmol/L (22-30); Chloride 96.7 mmol/L (98-107); Glucose 70 mg/dL (75-100); Potassium 5.5 mmol/L (3.6-5.0); Sodium 131 mmol/L (137-145)
[2016-09-13 05:50] LABS: INR 0.96 (0.87-1.13)
[2016-09-13 06:00] LABS: Mean Corpuscular Hemoglobin 24 pg (28-32)
[2016-09-13] MEDS: BACTRIM DS PO SCH ×3 (06:07→21:48)
[2016-09-13] MEDS ORDERED: D50W (25GM) IV ONE ×4 (08:26→13:15)
[2016-09-13] MEDS ORDERED: LASIX IV ONE ×2 (08:31→09:00)
[2016-09-13] MEDS ORDERED: NOVOLOG SUB-Q ONE (08:34)
[2016-09-13] MEDS ORDERED: D5W 1,000 ML IV SCH (09:00)
--- NOTE | 2016-09-13 09:10 | Progress Note ---
Assessment and Plan - Patient Problems (1) Pneumonia Current Visit: Yes Status: Acute Qualifiers: Pneumonia type: due to unspecified organism Aspiration pneumonia type: A Laterality: right Lung location: unspecified part of lung Qualified Code(s) : J18.9 - Pneumonia, unspecified organism Plan to address problem: 1. Patient is prescribed Bactrim to complete a presumptive course for PjP as well as Levaquin course. 2. Okay to discharge from an ID standpoint regarding this pulmonary issue. (2) Odynophagia Current Visit: No Status: Acute Plan to address problem: 1. Question HSV- or CMV-mediated esophagitis. 2. Await path results of bronchoscopy. 3. Will start Acyclovir, though alternate treatment may be needed for CMV disease. This can be changed to oral therapy when the patient is ready for discharge. 4. Okay to continue Fluconazole for now to complete a 10-14-day course. (3) AIDS Current Visit: Yes Status: Acute Plan to address problem: Patient can resume outpatient follow-up at [facility]. Subjective Date of service: 09/13/16 Principal diagnosis: Pneumonia Interval history: Patient complains of odynophagia. For EGD today. Cough remains but improved. Objective - Constitutional Vitals: Vital Signs Temp Pulse Resp BP Pulse Ox 99 F 79 18 102/61 97 09/13/16 08:28 09/13/16 08:28 09/13/16 08:28 09/13/16 08:28 09/12/16 07:00 Temperature -Last 24 Hours Temperature 99 F Temperature 99.1 F Temperature 99.5 F Temperature 99.8 F Temperature 99 F General appearance: Present: no acute distress, cachectic, disheveled - EENT Eyes: no scleral icterus, no conjunctival injection ENT: thrush (improved over prior) - Neck Neck: supple - Respiratory Respiratory: bilateral: CTA, negative: rales, rhonchi - Cardiovascular Rhythm: regular Heart Sounds: Present: S1 & S2 Extremities: No edema - Gastrointestinal General gastrointestinal: Present: soft, non-tender, non-distended - Integumentary Integumentary: no jaundice, no rash - Neurologic Neurologic: no CNII-XII intact, no focal deficits - Labs CBC & Chem 7: 09/13/16 04:56 09/13/16 11:10 Labs: Abnormal lab results 09/09/16 09/13/16 09/13/16 Range/Units 16:45 04:56 04:56 WBC 2.4 L (4.5-11.0) K/mm3 Hgb 10.6 L (11.8-15.2) gm/dl Hct 33.9 L (35.5-45.6) % MCV 77 L (84-94) fl MCH 24 L (28-32) pg MCHC 31 L (32-34) % RDW 19.4 H (13.2-15.2) % Lymph % (Auto) 8.6 L (13.4-35.0) % [place] % (Auto) 11.5 H (0.0-7.3) % Lymph # 0.2 L (1.2-5.4) K/mm3 Seg Neutrophils % 79.5 H (40.0-70.0) % Sodium 131 L (137-145) mmol/L Potassium 5.5 H (3.6-5.0) mmol/L Chloride 96.7 L (98-107) mmol/L Glucose 70 L (75-100) mg/dL Calcium 8.3 L (8.4-10.2) mg/dL TB (QFT) Gold In Tube Indeterminate H (Negative) Microbiology 09/07/16 13:44 Peripheral/Venous Blood Culture - Final NO GROWTH AFTER 5 DAYS 09/07/16 14:26 Peripheral/Venous Blood Culture - Final NO GROWTH AFTER 5 DAYS 09/09/16 17:01 Serum Cryptococcal Antigen - Final
[2016-09-13] MEDS ORDERED: ZOVIRAX IV SCH (10:00)
--- NOTE | 2016-09-13 12:12 | Discharge Summary ---
Providers - Providers Date of Admission: 09/07/16 16:08 Date of discharge: 09/13/16 Attending physician: PATRICIA GUERIN MD 09/08/16 07:42 Consult to Physician [CONS] Routine Consulting Provider: BENNETT HANLEY Reason For Exam: PCP, encephalopathy Place consult to:: ID Notified:: cell Phone number called:: [phone] Was contact made?: No Time called:: 09:34 09/08/16 11:06 Consult to Dietitian/Nutrition [CONS] Routine Physician Instructions: Reason For Exam: Reason for Consult: Malnutrition 09/11/16 13:46 Consult to Physician [CONS] Routine Consulting Provider: AUSTIN MAC Reason For Exam: PCP, for bronchoscopy Place consult to:: pulmonary Notified:: OVERHEAD PAGE Phone number called:: Was contact made?: Yes If yes, spoke with:: DR. FERNANDEZ Time called:: 14:02 09/11/16 14:12 Consult to Case Management [CONS] Routine Services Needed at Discharge: Other Notified:: kirk Phone number called:: [phone] Time called:: 10:00 Comment:: Need [facility] records; pleae place on chart=faxed over release of medical 09/12/16 09:17 Consult to Physician [CONS] Routine Consulting Provider: MAKSIM MERINO Reason For Exam: oral trush, pain on swallowing Place consult to:: GI/DR. David MERINO Notified:: OFFICE Phone number called:: [phone] Was contact made?: Yes If yes, spoke with:: DARSHANA Cabezas called:: 09:34 Comment:: MANDEEP NOTIFIED Primary care physician: TIP FIXER Hospitalization Reason for admission: PENUMONIA Condition: Stable Hospital course: Patient 46-year-old -[place] male with past medical history significant for AIDS, medication noncompliance presented to the emergency department complaining of cough and shortness of breath for the last 2 weeks associated with weight loss. He is admitted for further workup and management. Patient was off his HIV medications for 6 months and patient needs to go back to [facility] clinic to restart his medications. On admission the patient was noted to be chronically emaciated and very malnourished with anemia of chronic illness GI was consulted to assist with management patient did proceed to have endoscopy which showed 1. Ulcerative esophagitis. Biopsies obtained. 2. Tatiana appearing mucosa (mild, likely as patient is on diflucan) 3. Erosive gastritis Patient was seen by infectious disease physician as he also did have a pneumonia of the right lower lobe. Considering his status he was started on Levaquin and Bactrim to cover for PCP also fluconazole. He is to follow the [facility]. Although after very careful discussion and also as noted below does find that the patient may not be able to continue on his therapy I'm a bit of benefit from hospice service. This was discussed to the patient for which she was agreeable to. On plan for discharge patient was noted to be very weak and lethargic unable to ambulate by himself despite pre-previous evaluation. I did discuss possible placement for the patient which he declines. Although with his ex- presented and reported that the patient has been evicted from his previous home no other option is available except placement in a facility where he would benefit from some rehabilitation and possibly hospice. This agreeable to this. Discharge diagnosis * Pneumonia suspect the PJP * Oropharyngeal candidiasis * AIDS * Ulcerative esophagitis. * Noncompliance with his HAART * Leukopenia * Severe malnutrition * Anemia of chronic illness Discussed extensively with the patient is agreeable to sign on with hospice but also reports that he will reevaluate at home. If he is able to continue or start taking the HAART medications. At the day of the discharge was done ex- appeared her stated patient has benefited from home so placement is supportive of discharge. Disposition: [id number]/[id number] [facility] Time spent for discharge: 35 mins Core Measure Documentation - Palliative Care Palliative Care/ Comfort Measures: Not Applicable - Core Measures Any of the following diagnoses?: none - VTE Discharge Requirements Deep Vein Thrombosis/Pulmonary Embolism Present on Admission: No Exam - Physical Exam Narrative exam: VITAL SIGNS: Reviewed. GENERAL: The patient is ill-appearing, emaciated. Vital signs as documented. HEAD: No signs of head trauma. Marked temporal wasting EYES: Pupils are equal. Extraocular motions intact. EARS: Hearing grossly intact. MOUTH: Oropharynx is normal. NECK: No adenopathy, no JVD. CHEST: Chest with clear breath sounds bilaterally. No wheezes, rales, or rhonchi. CARDIAC: Regular rate and rhythm. S1 and S2, without murmurs, gallops, or rubs. VASCULAR: No Edema. Peripheral pulses normal and equal in all extremities. ABDOMEN: Soft, without detectable tenderness. No sign of distention. No rebound or guarding, and no masses palpated. Bowel Sounds normal. MUSCULOSKELETAL: Good range of motion of all major joints. Extremities without clubbing, cyanosis or edema. NEUROLOGIC EXAM: Alert and oriented x 3. No focal sensory or strength deficits. Speech normal. Follows commands. PSYCHIATRIC: Mood normal. SKIN: No rash or lesions. - Constitutional Vitals: Temp Pulse Resp BP Pulse Ox 99 F 79 18 102/61 97 09/13/16 08:28 09/13/16 08:28 09/13/16 08:28 09/13/16 08:28 09/12/16 07:00 Plan Activity: advance as tolerated, fall precautions Diet: low fat Special Instructions: physical therapy, occupational therapy Follow up with: PRIMARY CARE, [Primary Care Provider] - 3-5 Days MAKSIM MERINO MD [Staff Physician] - 7 Days BENNETT HANLEY MD [Staff Physician] - 7 Days Prescriptions: Acyclovir [Zovirax Cap] 400 mg PO TID 10 Days Famotidine [Pepcid] 20 mg PO BID #60 tablet Fluconazole [Diflucan TAB] 200 mg PO QDAY #14 tablet Levofloxacin [Levaquin TAB] 750 mg PO Q24HR #7 tablet Sulfamethoxazole/Trimethoprim [Bactrim DS TAB] 2 each PO Q8HR 14 Days
[2016-09-13] MEDS: ZOVIRAX 500 MG in NACL 0.9% 100 ML IV SCH ×2 (13:01→21:49)
[2016-09-13] MEDS ORDERED: DIPRIVAN 10 MG/ML IV ONE (14:44)
--- NOTE | 2016-09-13 15:04 | Anesthesia Consultation ---
Anesthesia Consult and Med Hx Date of service: 09/13/16 - Pre-Operative Health Status ASA Pre-Surgery Classification: ASA3 Proposed Anesthetic Plan: MAC - Pulmonary Hx Smoking: No Hx Asthma: Yes COPD: No Hx Pneumonia: Yes - Cardiovascular System Hx Hypertension: No Hx Heart Attack/AMI: No - Endocrine Hx End Stage Renal Disease: No - Hematic Hx Anemia: Yes Hx Sickle Cell Disease: No - Additional Comments Anesthesia Medical History Comments: Pt has AIDS, asthma, anemia, malnutrition, leukopenia
--- NOTE | 2016-09-13 15:04 | Anesthesia Day of Surgery ---
Anesthesia Day of Surgery - Day of Surgery Patient Examined: Yes Patient H&P Reviewed: Yes Patient is NPO: Yes
[2016-09-13] MEDS ORDERED: NACL 0.9% 1000 ML 1,000 ML IV SCH (16:00)
[2016-09-13] MEDS ORDERED: WATER FOR IRRIG STERILE IR ONE (16:17)
--- NOTE | 2016-09-13 16:41 | Post Operative Note ---
Pre-op diagnosis: odynophagia Post-op diagnosis: other (ulcerative esophagitis throughout the esophagus, gastric erosions) Findings: Ulcerative (shallow, clean based) esophagitis throughout the esophagus. Hiatal hernia. Gastric erosions. Procedure: EGD with biopsy Anesthesia: MAC Surgeon: MAKSIM MERINO Estimated blood loss: minimal Pathology: list (esophageal ulcer biopsies) Specimen disposition: to lab Condition: stable Disposition: floor
--- NOTE | 2016-09-13 16:47 | Operative Report ---
Operative Report Operative Report: EGD PROCEDURE NOTE Date of procedure: 09/13/2016 Pre-op diagnosis: odynophagia, h/o HIV/AIDS Post-op diagnosis: ulcerative esophagitis, hiatal hernia, gastric erosions Anesthesia: MAC Complications: No immediate complications Estimated blood loss: minimal Procedure: After consent was obtained, the patient was placed in the left lateral decubitus position. The fujinon endoscope was inserted into the mouth with direct vision and advanced into the 2nd portion of duodenum without difficulty. The patient tolerated the procedure well. The views of the mucosa were good. Findings: There were multiple shallow/clean based ulcers throughout the esophagus ( ulcerative esophagitis). Biopsies were obtained to evaluate for infectious source (including CMV, HSV). Mild tatiana appearing mucosa in the proximal-mid esophagus (of note, patient on diflucan) Hiatal hernia There was a small clean based erosion in gastric antrum. Mild erythematous mucosa in the stomach. The duodenum appeared normal. Impression: 1. Ulcerative esophagitis. Biopsies obtained. 2. Tatiana appearing mucosa (mild, likely as patient is on diflucan) 3. Erosive gastritis Recommendations: -follow-up pathology -complete course of diflucan -further treatment as needed based on pathology results -avoid NSAIDs -anti-acid medication daily Follow-up in GI clinic in 2-4 weeks.
--- NOTE | 2016-09-13 17:14 | Post Anesthesia Evaluation ---
- Post Anesthesia Evaluation Patient Participated: Yes Airway Patent: Yes Stable Respiratory Function: Yes Nausea/Vomiting: No Temp > 96.8F: Yes Pain Manageable: Yes Adequeate Hydration: Yes Anesthesia Complications: No Block Receding Appropriately: Not Applicable Patient on Ventilator: No
--- NOTE | 2016-09-13 17:42 | Progress Note ---
Assessment and Plan Assessment and plan: Patient 46-year-old -[place] male with past medical history significant for AIDS, medication noncompliance presented to the emergency department complaining of cough and shortness of breath for the last 2 weeks associated with weight loss. He is admitted for further workup and management. Patient was off his HIV medications for 6 months and patient needs to go back to [facility] to restart his medications. On admission the patient was noted to be chronically emaciated and very malnourished with anemia of chronic illness GI was consulted to assist with management patient did proceed to have endoscopy which showed 1. Ulcerative esophagitis. Biopsies obtained. 2. [place] appearing mucosa (mild, likely as patient is on diflucan) 3. Erosive gastritis On plan for discharge patient was noted to be very weak and lethargic unable to ambulate by himself despite pre-previous evaluation. I did discuss possible placement for the patient which he declines. We'll get physical therapy to reevaluate in a.m. anticipate discharge tomorrow. She lives alone and is unsafe to send him home at this late. PCP Oropharyngeal candidiasis AIDS Noncompliance with his ART Right lower lobe pneumonia Malnutrition Leukopenia Anemia of chronic illness - Patient is on Bactrim, Levaquin, and diflucan- compete diflucan - GI consulted and will do EGD as noted above - Pulmonary consulted and recommended no bronchoscopy needed at this time - Patient is advised to go back to [place] to restart his ART. - ID is consult appreciated, cryptococcal antigen is negative and QuantiFERON Gold is pending - Nutrition; dietitian consulted - Patient is counseled about medication compliance - Patient's hemoglobin is stable DVT prophylaxis - SCD because of anemia Disposition -Discharge in AM post PT/OT eval History Interval history: Patient seen and examined today. Post-endoscopy nursing staff reports concern about patient's stability with ambulation. Hospitalist Physical - Physical exam Narrative exam: VITAL SIGNS: Reviewed. GENERAL: The patient is ill-appearing, emaciated. Vital signs as documented. HEAD: No signs of head trauma. Marked temporal wasting EYES: Pupils are equal. Extraocular motions intact. EARS: Hearing grossly intact. MOUTH: Oropharynx is normal. NECK: No adenopathy, no JVD. CHEST: Chest with clear breath sounds bilaterally. No wheezes, rales, or rhonchi. CARDIAC: Regular rate and rhythm. S1 and S2, without murmurs, gallops, or rubs. VASCULAR: No Edema. Peripheral pulses normal and equal in all extremities. ABDOMEN: Soft, without detectable tenderness. No sign of distention. No rebound or guarding, and no masses palpated. Bowel Sounds normal. MUSCULOSKELETAL: Good range of motion of all major joints. Extremities without clubbing, cyanosis or edema. NEUROLOGIC EXAM: Alert and oriented x 3. No focal sensory or strength deficits. Speech normal. Follows commands. PSYCHIATRIC: Mood normal. SKIN: No rash or lesions. - Constitutional Vitals: Temp Pulse Resp BP Pulse Ox 98.5 F 84 23 84/51 99 09/13/16 16:38 09/13/16 17:15 09/13/16 17:15 09/13/16 17:15 09/13/16 17:15 General appearance: Present: no acute distress, cachectic, disheveled Results - Labs CBC & Chem 7: 09/13/16 04:56 09/13/16 11:10 Labs: Laboratory Last Values WBC 2.4 K/mm3 (4.5-11.0) L 09/13/16 04:56 RBC 4.41 M/mm3 (3.65-5.03) 09/13/16 04:56 Hgb 10.6 gm/dl (11.8-15.2) L 09/13/16 04:56 Hct 33.9 % (35.5-45.6) L 09/13/16 04:56 MCV 77 fl (84-94) L 09/13/16 04:56 MCH 24 pg (28-32) L 09/13/16 04:56 MCHC 31 % (32-34) L 09/13/16 04:56 RDW 19.4 % (13.2-15.2) H 09/13/16 04:56 Plt Count 151 K/mm3 (140-440) 09/13/16 04:56 Lymph % (Auto) 8.6 % (13.4-35.0) L 09/13/16 04:56 [place] % (Auto) 11.5 % (0.0-7.3) H 09/13/16 04:56 Eos % (Auto) 0.0 % (0.0-4.3) 09/13/16 04:56 Baso % (Auto) 0.4 % (0.0-1.8) 09/13/16 04:56 Lymph # 0.2 K/mm3 (1.2-5.4) L 09/13/16 04:56 [place] # 0.3 K/mm3 (0.0-0.8) 09/13/16 04:56 Eos # 0.0 K/mm3 (0.0-0.4) 09/13/16 04:56 Baso # 0.0 K/mm3 (0.0-0.1) 09/13/16 04:56 Add Manual Diff Complete 09/10/16 08:31 Total Counted 100 09/10/16 08:31 Seg Neutrophils % 79.5 % (40.0-70.0) H 09/13/16 04:56 Seg Neuts % (Manual) 90.0 % (40.0-70.0) H 09/10/16 08:31 Band Neutrophils % 0 % 09/10/16 08:31 Lymphocytes % (Manual) 6.0 % (13.4-35.0) L 09/10/16 08:31 Reactive Lymphs % (Man) 1.0 % 09/10/16 08:31 Monocytes % (Manual) 3.0 % (0.0-7.3) 09/10/16 08:31 Eosinophils % (Manual) 0 % (0.0-4.3) 09/10/16 08:31 Basophils % (Manual) 0 % (0.0-1.8) 09/10/16 08:31 Metamyelocytes % 0 % 09/10/16 08:31 Myelocytes % 0 % 09/10/16 08:31 Promyelocytes % 0 % 09/10/16 08:31 Blast Cells % 0 % 09/10/16 08:31 Nucleated RBC % Not Reportable 09/10/16 08:31 Seg Neutrophils # 1.9 K/mm3 (1.8-7.7) 09/13/16 04:56 Seg Neutrophils # Man 3.0 K/mm3 (1.8-7.7) 09/10/16 08:31 Band Neutrophils # 0.0 K/mm3 09/10/16 08:31 Lymphocytes # (Manual) 0.2 K/mm3 (1.2-5.4) L 09/10/16 08:31 Abs React Lymphs (Man) 0.0 K/mm3 09/10/16 08:31 Monocytes # (Manual) 0.1 K/mm3 (0.0-0.8) 09/10/16 08:31 Eosinophils # (Manual) 0.0 K/mm3 (0.0-0.4) 09/10/16 08:31 Basophils # (Manual) 0.0 K/mm3 (0.0-0.1) 09/10/16 08:31 Metamyelocytes # 0.0 K/mm3 09/10/16 08:31 Myelocytes # 0.0 K/mm3 09/10/16 08:31 Promyelocytes # 0.0 K/mm3 09/10/16 08:31 Blast Cells # 0.0 K/mm3 09/10/16 08:31 WBC Morphology Not Reportable 09/10/16 08:31 Hypersegmented Neuts Not Reportable 09/10/16 08:31 Hyposegmented Neuts Not Reportable 09/10/16 08:31 Hypogranular Neuts Not Reportable 09/10/16 08:31 Smudge Cells Not Reportable 09/10/16 08:31 Toxic Granulation Not Reportable 09/10/16 08:31 Toxic Vacuolation Not Reportable 09/10/16 08:31 Dohle Bodies Not Reportable 09/10/16 08:31 Pelger-Huet Anomaly Not Reportable 09/10/16 08:31 Tamia Rods Not Reportable 09/10/16 08:31 Platelet Estimate Cons 09/10/16 08:31 Clumped Platelets Not Reportable 09/10/16 08:31 Plt Clumps, EDTA Not Reportable 09/10/16 08:31 Large Platelets Few 09/10/16 08:31 Giant Platelets Not Reportable 09/10/16 08:31 Platelet Satelliting Not Reportable 09/10/16 08:31 Plt Morphology Comment Not Reportable 09/10/16 08:31 RBC Morphology Not Reportable 09/10/16 08:31 Dimorphic RBCs Not Reportable 09/10/16 08:31 Polychromasia Not Reportable 09/10/16 08:31 Hypochromasia 1+ 09/10/16 08:31 Poikilocytosis 2+ 09/10/16 08:31 Anisocytosis 2+ 09/10/16 08:31 Microcytosis Not Reportable 09/10/16 08:31 Macrocytosis Not Reportable 09/10/16 08:31 Spherocytes Not Reportable 09/10/16 08:31 Pappenheimer Bodies Not Reportable 09/10/16 08:31 Sickle Cells Not Reportable 09/10/16 08:31 Target Cells Not Reportable 09/10/16 08:31 Tear Drop Cells Rare 09/10/16 08:31 Ovalocytes 2+ 09/10/16 08:31 Helmet Cells Not Reportable 09/10/16 08:31 [place] Bodies Not Reportable 09/10/16 08:31 [place] Rings Not Reportable 09/10/16 08:31 [place] Cells Not Reportable 09/10/16 08:31 Bite Cells Not Reportable 09/10/16 08:31 Crenated Cell Not Reportable 09/10/16 08:31 Elliptocytes Not Reportable 09/10/16 08:31 Acanthocytes (Spur) 1+ 09/10/16 08:31 Rouleaux Not Reportable 09/10/16 08:31 Hemoglobin C Crystals Not Reportable 09/10/16 08:31 Schistocytes Not Reportable 09/10/16 08:31 Malaria parasites Not Reportable 09/10/16 08:31 Telly Bodies Not Reportable 09/10/16 08:31 Hem Pathologist Commnt No 09/10/16 08:31 PT 13.3 Sec. (12.2-14.9) 09/13/16 04:56 INR 0.96 (0.87-1.13) 09/13/16 04:56 POC ABG pH 7.368 (7.35-7.45) 09/09/16 10:20 POC ABG pCO2 25.1 (35-45) L 09/09/16 10:20 POC ABG pO2 91 (80-105) 09/09/16 10:20 POC ABG HCO3 14.5 09/09/16 10:20 POC ABG Total CO2 15 09/09/16 10:20 POC ABG O2 Sat 97 09/09/16 10:20 POC ABG Base Excess -11 09/09/16 10:20 FiO2 21 % 09/09/16 10:20 Sodium 131 mmol/L (137-145) L 09/13/16 04:56 Potassium 4.2 mmol/L (3.6-5.0) 09/13/16 11:10 Chloride 96.7 mmol/L (98-107) L 09/13/16 04:56 Carbon Dioxide 22 mmol/L (22-30) 09/13/16 04:56 Anion Gap 18 mmol/L 09/13/16 04:56 BUN 19 mg/dL (9-20) 09/13/16 04:56 Creatinine 1.2 mg/dL (0.8-1.5) 09/13/16 04:56 Estimated GFR > 60 ml/min 09/13/16 04:56 BUN/Creatinine Ratio 15.83 % 09/13/16 04:56 Glucose 70 mg/dL (75-100) L 09/13/16 04:56 POC Glucose 121 (70-105) H 09/13/16 13:53 Lactic Acid 0.80 mmol/L (0.7-2.0) 09/07/16 13:44 Calcium 8.3 mg/dL (8.4-10.2) L 09/13/16 04:56 Total Bilirubin 0.30 mg/dL (0.1-1.2) 09/07/16 13:44 AST 13 units/L (5-40) 09/07/16 13:44 ALT < 5 units/L (7-56) L 09/07/16 13:44 Alkaline Phosphatase 51 units/L (35-129) 09/07/16 13:44 Troponin T < 0.010 ng/mL (0.00-0.029) 09/07/16 13:44 Total Protein 8.0 g/dL (6.3-8.2) 09/07/16 13:44 Albumin 2.6 g/dL (3.9-5) L 09/07/16 13:44 Albumin/Globulin Ratio 0.5 % 09/07/16 13:44 TB (QFT) Gold In Tube Indeterminate (Negative) H 09/09/16 16:45 TB Test (QFT) Nil 0.05 IU/mL 09/09/16 16:45 TB Test Mitogen - Nil <0.00 IU/mL 09/09/16 16:45 TB Test Antigen - Nil <0.00 IU/mL 09/09/16 16:45 Blood Type A POSITIVE 09/10/16 08:35 Antibody Screen TNR 09/10/16 08:35 WALE Antibody Screen Negative 09/10/16 08:35 Crossmatch See Detail 09/10/16 08:35
[2016-09-13] MEDS: PEPCID PO SCH ×2 (17:48→21:48)
[2016-09-13] MEDS: LEVAQUIN PO SCH (18:12)
[2016-09-13] MEDS: DIFLUCAN PO SCH (18:12)
--- NOTE | 2016-09-13 19:01 | Progress Note ---
Assessment and Plan Patient sleeping at this time. No respiratory distress.O2 saturation 99% on room air. - Patient Problems (1) Odynophagia Current Visit: No Status: Acute Plan to address problem: Gastroenterology consulted. Patient undergone upper GI endoscopy. (2) HIV disease Current Visit: No Status: Chronic Plan to address problem: Management as per infectious diseases. (3) Hypertension Current Visit: Yes Status: Acute Qualifiers: Hypertension type: H Plan to address problem: Management as per primary care. (4) Pneumonia Current Visit: Yes Status: Acute Qualifiers: Pneumonia type: due to unspecified organism Aspiration pneumonia type: A Laterality: right Lung location: unspecified part of lung Qualified Code(s) : J18.9 - Pneumonia, unspecified organism Plan to address problem: Questionable infiltrate on the chest xray. Patient has no fever,no cough, no chills, no leukocytosis. Patient empirically on antibiotics Levaquine and Bactrim. Subjective Date of service: 09/13/16 Principal diagnosis: Pneumonia Interval history: Patient sleeping at this time. No respiratory distress.O2 saturation 99% on room air. Objective Vital Signs - 12hr 09/13/16 09/13/16 09/13/16 08:28 15:07 15:10 Temperature 99 F 97.9 F 97.9 F Pulse Rate 86 86 Pulse Rate [ 79 From Monitor] Pulse Rate [ Right Radial] Respiratory 18 20 20 Rate Blood Pressure 93/65 93/65 Blood Pressure 102/61 [Left Arm] O2 Sat by Pulse 98 98 Oximetry 09/13/16 09/13/16 09/13/16 16:38 16:58 17:15 Temperature 98.5 F Pulse Rate 80 83 84 Pulse Rate [ From Monitor] Pulse Rate [ Right Radial] Respiratory 17 20 23 Rate Blood Pressure 91/60 81/51 84/51 Blood Pressure [Left Arm] O2 Sat by Pulse 100 100 99 Oximetry 09/13/16 18:30 Temperature 98.1 F Pulse Rate Pulse Rate [ 72 From Monitor] Pulse Rate [ 72 Right Radial] Respiratory 18 Rate Blood Pressure Blood Pressure 94/52 [Left Arm] O2 Sat by Pulse 99 Oximetry Constitutional: no acute distress, alert, other (Weak) Eyes: non-icteric ENT: oropharynx moist Neck: supple, no lymphadenopathy Ascultation: Bilateral: clear Cardiovascular: regular rate and rhythm Gastrointestinal: normoactive bowel sounds, soft, non-tender Integumentary: normal Extremities: no cyanosis, no edema Neurologic: normal mental status, non-focal exam, pupils equal and round, CN II- XII normal Psychiatric: mood appropriate CBC and BMP: 09/13/16 04:56 09/13/16 11:10 ABG, PT/INR, D-dimer: ABG POC ABG pH 7.368 (7.35-7.45) 09/09/16 10:20 POC ABG pCO2 25.1 (35-45) L 09/09/16 10:20 POC ABG pO2 91 (80-105) 09/09/16 10:20 POC ABG HCO3 14.5 09/09/16 10:20 POC ABG Total CO2 15 09/09/16 10:20 POC ABG O2 Sat 97 09/09/16 10:20 PT/INR, D-dimer PT 13.3 Sec. (12.2-14.9) 09/13/16 04:56 INR 0.96 (0.87-1.13) 09/13/16 04:56 Abnormal lab findings: Abnormal Labs 09/09/16 09/09/16 09/09/16 05:46 05:46 10:20 WBC 3.2 L RBC 2.76 L Hgb 6.2 L Hct 20.8 L MCV 75 L MCH 23 L MCHC 30 L RDW 18.9 H Plt Count 139 L Lymph % (Auto) 12.[address] [place] % (Auto) 9.8 H Lymph # 0.4 L Seg Neutrophils % 77.7 H Seg Neuts % (Manual) Lymphocytes % (Manual) Lymphocytes # (Manual) POC ABG pCO2 25.1 L Sodium Potassium Chloride 110.1 H Carbon Dioxide 16 L BUN Glucose POC Glucose Calcium 7.4 L TB (QFT) Gold In Tube Crossmatch 09/09/16 09/10/16 09/10/16 16:45 08:31 08:31 WBC 3.3 L RBC 3.03 L Hgb 6.8 L Hct 22.8 L MCV 75 L MCH 23 L MCHC 30 L RDW 19.2 H Plt Count Lymph % (Auto) [place] % (Auto) Lymph # Seg Neutrophils % Seg Neuts % (Manual) 90.0 H Lymphocytes % (Manual) 6.0 L Lymphocytes # (Manual) 0.2 L POC ABG pCO2 Sodium Potassium Chloride Carbon Dioxide 19 L BUN Glucose POC Glucose Calcium 8.2 L TB (QFT) Gold In Tube Indeterminate H Crossmatch 09/10/16 09/11/16 09/11/16 08:35 04:18 05:53 WBC RBC Hgb Hct MCV MCH MCHC RDW Plt Count Lymph % (Auto) [place] % (Auto) Lymph # Seg Neutrophils % Seg Neuts % (Manual) Lymphocytes % (Manual) Lymphocytes # (Manual) POC ABG pCO2 Sodium 136 L Potassium 5.3 H Chloride Carbon Dioxide 18 L BUN Glucose 110 H POC Glucose 123 H Calcium 8.2 L TB (QFT) Gold In Tube Crossmatch See Detail 09/11/16 09/12/16 09/12/16 07:48 04:19 04:19 WBC 4.3 L 2.5 L RBC Hgb 9.4 L 9.2 L Hct 29.7 L D 30.1 L MCV 77 L 77 L MCH 24 L 24 L MCHC 31 L RDW 19.2 H 19.0 H Plt Count Lymph % (Auto) 6.[address] % (Auto) 8.0 H 11.9 H Lymph # 0.3 L 0.3 L Seg Neutrophils % 85.0 H 75.2 H Seg Neuts % (Manual) Lymphocytes % (Manual) Lymphocytes # (Manual) POC ABG pCO2 Sodium 133 L Potassium Chloride Carbon Dioxide 19 L BUN 21 H Glucose POC Glucose Calcium 8.1 L TB (QFT) Gold In Tube Crossmatch 09/13/16 09/13/16 09/13/16 04:56 04:56 13:07 WBC 2.4 L RBC Hgb 10.6 L Hct 33.9 L MCV 77 L MCH 24 L MCHC 31 L RDW 19.4 H Plt Count Lymph % (Auto) 8.[address] % (Auto) 11.5 H Lymph # 0.2 L Seg Neutrophils % 79.5 H Seg Neuts % (Manual) Lymphocytes % (Manual) Lymphocytes # (Manual) POC ABG pCO2 Sodium 131 L Potassium 5.5 H Chloride 96.7 L Carbon Dioxide BUN Glucose 70 L POC Glucose < 40 L Calcium 8.3 L TB (QFT) Gold In Tube Crossmatch 09/13/16 13:53 WBC RBC Hgb Hct MCV MCH MCHC RDW Plt Count Lymph % (Auto) [place] % (Auto) Lymph # Seg Neutrophils % Seg Neuts % (Manual) Lymphocytes % (Manual) Lymphocytes # (Manual) POC ABG pCO2 Sodium Potassium Chloride Carbon Dioxide BUN Glucose POC Glucose 121 H Calcium TB (QFT) Gold In Tube Crossmatch
[2016-09-14] MEDS: ZOVIRAX 500 MG in NACL 0.9% 100 ML IV SCH ×2 (06:02→14:25)
[2016-09-14] MEDS: BACTRIM DS PO SCH ×3 (06:02→22:47)
[2016-09-14] MEDS: DIFLUCAN PO SCH (09:11)
[2016-09-14] MEDS: PEPCID PO SCH ×2 (09:12→22:47)
[2016-09-14] MEDS: LEVAQUIN PO SCH (09:12)
--- NOTE | 2016-09-14 12:36 | Progress Note ---
Subjective Date of service: 09/14/16 Principal diagnosis: Pneumonia Interval history: Seen and examined at bedside; 24 hour events reviewed; nursing and respiratory care staff consulted; no adverse overnight events reported to me; Objective Vital Signs - 12hr 09/14/16 08:00 Temperature 98 F Pulse Rate [ 88 From Monitor] Pulse Rate [ 88 Right Radial] Respiratory 16 Rate Blood Pressure 94/65 [Left Arm] O2 Sat by Pulse 100 Oximetry Constitutional: no acute distress, alert, other (Weak) Eyes: non-icteric ENT: oropharynx moist Neck: supple, no lymphadenopathy Ascultation: Bilateral: clear Cardiovascular: regular rate and rhythm Gastrointestinal: normoactive bowel sounds, soft, non-tender Integumentary: normal Extremities: no cyanosis, no edema Neurologic: normal mental status, non-focal exam, pupils equal and round, CN II- XII normal Psychiatric: mood appropriate CBC and BMP: 09/13/16 04:56 09/13/16 11:10 ABG, PT/INR, D-dimer: ABG POC ABG pH 7.368 (7.35-7.45) 09/09/16 10:20 POC ABG pCO2 25.1 (35-45) L 09/09/16 10:20 POC ABG pO2 91 (80-105) 09/09/16 10:20 POC ABG HCO3 14.5 09/09/16 10:20 POC ABG Total CO2 15 09/09/16 10:20 POC ABG O2 Sat 97 09/09/16 10:20 PT/INR, D-dimer PT 13.3 Sec. (12.2-14.9) 09/13/16 04:56 INR 0.96 (0.87-1.13) 09/13/16 04:56 Abnormal lab findings: Abnormal Labs 09/09/16 09/09/16 09/09/16 05:46 05:46 10:20 WBC 3.2 L RBC 2.76 L Hgb 6.2 L Hct 20.8 L MCV 75 L MCH 23 L MCHC 30 L RDW 18.9 H Plt Count 139 L Lymph % (Auto) 12.3 L [place] % (Auto) 9.8 H Lymph # 0.4 L Seg Neutrophils % 77.7 H Seg Neuts % (Manual) Lymphocytes % (Manual) Lymphocytes # (Manual) POC ABG pCO2 25.1 L Sodium Potassium Chloride 110.1 H Carbon Dioxide 16 L BUN Glucose POC Glucose Calcium 7.4 L TB (QFT) Gold In Tube Crossmatch 09/09/16 09/10/16 09/10/16 16:45 08:31 08:31 WBC 3.3 L RBC 3.03 L Hgb 6.8 L Hct 22.8 L MCV 75 L MCH 23 L MCHC 30 L RDW 19.2 H Plt Count Lymph % (Auto) [place] % (Auto) Lymph # Seg Neutrophils % Seg Neuts % (Manual) 90.0 H Lymphocytes % (Manual) 6.0 L Lymphocytes # (Manual) 0.2 L POC ABG pCO2 Sodium Potassium Chloride Carbon Dioxide 19 L BUN Glucose POC Glucose Calcium 8.2 L TB (QFT) Gold In Tube Indeterminate H Crossmatch 09/10/16 09/11/16 09/11/16 08:35 04:18 05:53 WBC RBC Hgb Hct MCV MCH MCHC RDW Plt Count Lymph % (Auto) [place] % (Auto) Lymph # Seg Neutrophils % Seg Neuts % (Manual) Lymphocytes % (Manual) Lymphocytes # (Manual) POC ABG pCO2 Sodium 136 L Potassium 5.3 H Chloride Carbon Dioxide 18 L BUN Glucose 110 H POC Glucose 123 H Calcium 8.2 L TB (QFT) Gold In Tube Crossmatch See Detail 09/11/16 09/12/16 09/12/16 07:48 04:19 04:19 WBC 4.3 L 2.5 L RBC Hgb 9.4 L 9.2 L Hct 29.7 L D 30.1 L MCV 77 L 77 L MCH 24 L 24 L MCHC 31 L RDW 19.2 H 19.0 H Plt Count Lymph % (Auto) 6.8 L 12.4 L [place] % (Auto) 8.0 H 11.9 H Lymph # 0.3 L 0.3 L Seg Neutrophils % 85.0 H 75.2 H Seg Neuts % (Manual) Lymphocytes % (Manual) Lymphocytes # (Manual) POC ABG pCO2 Sodium 133 L Potassium Chloride Carbon Dioxide 19 L BUN 21 H Glucose POC Glucose Calcium 8.1 L TB (QFT) Gold In Tube Crossmatch 09/13/16 09/13/16 09/13/16 04:56 04:56 13:07 WBC 2.4 L RBC Hgb 10.6 L Hct 33.9 L MCV 77 L MCH 24 L MCHC 31 L RDW 19.4 H Plt Count Lymph % (Auto) 8.6 L [place] % (Auto) 11.5 H Lymph # 0.2 L Seg Neutrophils % 79.5 H Seg Neuts % (Manual) Lymphocytes % (Manual) Lymphocytes # (Manual) POC ABG pCO2 Sodium 131 L Potassium 5.5 H Chloride 96.7 L Carbon Dioxide BUN Glucose 70 L POC Glucose < 40 L Calcium 8.3 L TB (QFT) Gold In Tube Crossmatch 09/13/16 13:53 WBC RBC Hgb Hct MCV MCH MCHC RDW Plt Count Lymph % (Auto) [place] % (Auto) Lymph # Seg Neutrophils % Seg Neuts % (Manual) Lymphocytes % (Manual) Lymphocytes # (Manual) POC ABG pCO2 Sodium Potassium Chloride Carbon Dioxide BUN Glucose POC Glucose 121 H Calcium TB (QFT) Gold In Tube Crossmatch
--- NOTE | 2016-09-14 16:39 | Progress Note ---
Assessment and Plan Assessment and plan: Patient 46-year-old -[place] male with past medical history significant for AIDS, medication noncompliance presented to the emergency department complaining of cough and shortness of breath for the last 2 weeks associated with weight loss. He is admitted for further workup and management. Patient was off his HIV medications for 6 months and patient needs to go back [facility] to [facility] his medications. On admission the patient was noted to be chronically emaciated and very malnourished with anemia of chronic illness GI was consulted to assist with management patient did proceed to have endoscopy which showed 1. Ulcerative esophagitis. Biopsies obtained. 2. Tatiana appearing mucosa (mild, likely as patient is on diflucan) 3. Erosive gastritis On plan for discharge patient was noted to be very weak and lethargic unable to ambulate by himself despite pre-previous evaluation. I did discuss possible placement for the patient which he declines. We'll get physical therapy to reevaluate in a.m. anticipate discharge tomorrow. She lives alone and is unsafe to send him home at this late. 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 - ID is consult appreciated, Cryptococcal antigen is negative and QuantiFERON Gold is pending - Nutrition; dietitian consulted - Patient is counseled about medication compliance - Patient's hemoglobin is stable DVT prophylaxis - SCD because of anemia Disposition -Discussed extensively with the patient is agreeable to sign on with hospice but also reports that he will reevaluate at home. If he is able to continue or start taking the HAART medications. At the day of the discharge was done ex- appeared her stated patient has benefited from home so placement is supportive of discharge. History Interval history: Patient seen and examined today. refused placement. family (ex ) came following discharge and stated that patient was evicted from home and has not place to go. Patient denies any complaints today. Hospitalist Physical - Physical exam Narrative exam: VITAL SIGNS: Reviewed. GENERAL: The patient is ill-appearing, emaciated. Vital signs as documented. HEAD: No signs of head trauma. Marked temporal wasting EYES: Pupils are equal. Extraocular motions intact. EARS: Hearing grossly intact. MOUTH: Oropharynx is normal. NECK: No adenopathy, no JVD. CHEST: Chest with clear breath sounds bilaterally. No wheezes, rales, or rhonchi. CARDIAC: Regular rate and rhythm. S1 and S2, without murmurs, gallops, or rubs. VASCULAR: No Edema. Peripheral pulses normal and equal in all extremities. ABDOMEN: Soft, without detectable tenderness. No sign of distention. No rebound or guarding, and no masses palpated. Bowel Sounds normal. MUSCULOSKELETAL: Good range of motion of all major joints. Extremities without clubbing, cyanosis or edema. NEUROLOGIC EXAM: Alert and oriented x 3. No focal sensory or strength deficits. Speech normal. Follows commands. PSYCHIATRIC: Mood normal. SKIN: No rash or lesions. - Constitutional Vitals: Temp Pulse Resp BP Pulse Ox 98 F 88 16 94/65 100 09/14/16 08:00 09/14/16 08:00 09/14/16 08:00 09/14/16 08:00 09/14/16 08:00 General appearance: Present: no acute distress, cachectic, disheveled Results - Labs CBC & Chem 7: 09/13/16 04:56 09/13/16 11:10 Labs: Laboratory Last Values WBC 2.4 K/mm3 (4.5-11.0) L 09/13/16 04:56 RBC 4.41 M/mm3 (3.65-5.03) 09/13/16 04:56 Hgb 10.6 gm/dl (11.8-15.2) L 09/13/16 04:56 Hct 33.9 % (35.5-45.6) L 09/13/16 04:56 MCV 77 fl (84-94) L 09/13/16 04:56 MCH 24 pg (28-32) L 09/13/16 04:56 MCHC 31 % (32-34) L 09/13/16 04:56 RDW 19.4 % (13.2-15.2) H 09/13/16 04:56 Plt Count 151 K/mm3 (140-440) 09/13/16 04:56 Lymph % (Auto) 8.6 % (13.4-35.0) L 09/13/16 04:56 [place] % (Auto) 11.5 % (0.0-7.3) H 09/13/16 04:56 Eos % (Auto) 0.0 % (0.0-4.3) 09/13/16 04:56 Baso % (Auto) 0.4 % (0.0-1.8) 09/13/16 04:56 Lymph # 0.2 K/mm3 (1.2-5.4) L 09/13/16 04:56 [place] # 0.3 K/mm3 (0.0-0.8) 09/13/16 04:56 Eos # 0.0 K/mm3 (0.0-0.4) 09/13/16 04:56 Baso # 0.0 K/mm3 (0.0-0.1) 09/13/16 04:56 Add Manual Diff Complete 09/10/16 08:31 Total Counted 100 09/10/16 08:31 Seg Neutrophils % 79.5 % (40.0-70.0) H 09/13/16 04:56 Seg Neuts % (Manual) 90.0 % (40.0-70.0) H 09/10/16 08:31 Band Neutrophils % 0 % 09/10/16 08:31 Lymphocytes % (Manual) 6.0 % (13.4-35.0) L 09/10/16 08:31 Reactive Lymphs % (Man) 1.0 % 09/10/16 08:31 Monocytes % (Manual) 3.0 % (0.0-7.3) 09/10/16 08:31 Eosinophils % (Manual) 0 % (0.0-4.3) 09/10/16 08:31 Basophils % (Manual) 0 % (0.0-1.8) 09/10/16 08:31 Metamyelocytes % 0 % 09/10/16 08:31 Myelocytes % 0 % 09/10/16 08:31 Promyelocytes % 0 % 09/10/16 08:31 Blast Cells % 0 % 09/10/16 08:31 Nucleated RBC % Not Reportable 09/10/16 08:31 Seg Neutrophils # 1.9 K/mm3 (1.8-7.7) 09/13/16 04:56 Seg Neutrophils # Man 3.0 K/mm3 (1.8-7.7) 09/10/16 08:31 Band Neutrophils # 0.0 K/mm3 09/10/16 08:31 Lymphocytes # (Manual) 0.2 K/mm3 (1.2-5.4) L 09/10/16 08:31 Abs React Lymphs (Man) 0.0 K/mm3 09/10/16 08:31 Monocytes # (Manual) 0.1 K/mm3 (0.0-0.8) 09/10/16 08:31 Eosinophils # (Manual) 0.0 K/mm3 (0.0-0.4) 09/10/16 08:31 Basophils # (Manual) 0.0 K/mm3 (0.0-0.1) 09/10/16 08:31 Metamyelocytes # 0.0 K/mm3 09/10/16 08:31 Myelocytes # 0.0 K/mm3 09/10/16 08:31 Promyelocytes # 0.0 K/mm3 09/10/16 08:31 Blast Cells # 0.0 K/mm3 09/10/16 08:31 WBC Morphology Not Reportable 09/10/16 08:31 Hypersegmented Neuts Not Reportable 09/10/16 08:31 Hyposegmented Neuts Not Reportable 09/10/16 08:31 Hypogranular Neuts Not Reportable 09/10/16 08:31 Smudge Cells Not Reportable 09/10/16 08:31 Toxic Granulation Not Reportable 09/10/16 08:31 Toxic Vacuolation Not Reportable 09/10/16 08:31 Dohle Bodies Not Reportable 09/10/16 08:31 Pelger-Huet Anomaly Not Reportable 09/10/16 08:31 Tamia Rods Not Reportable 09/10/16 08:31 Platelet Estimate Cons 09/10/16 08:31 Clumped Platelets Not Reportable 09/10/16 08:31 Plt Clumps, EDTA Not Reportable 09/10/16 08:31 Large Platelets Few 09/10/16 08:31 Giant Platelets Not Reportable 09/10/16 08:31 Platelet Satelliting Not Reportable 09/10/16 08:31 Plt Morphology Comment Not Reportable 09/10/16 08:31 RBC Morphology Not Reportable 09/10/16 08:31 Dimorphic RBCs Not Reportable 09/10/16 08:31 Polychromasia Not Reportable 09/10/16 08:31 Hypochromasia 1+ 09/10/16 08:31 Poikilocytosis 2+ 09/10/16 08:31 Anisocytosis 2+ 09/10/16 08:31 Microcytosis Not Reportable 09/10/16 08:31 Macrocytosis Not Reportable 09/10/16 08:31 Spherocytes Not Reportable 09/10/16 08:31 Pappenheimer Bodies Not Reportable 09/10/16 08:31 Sickle Cells Not Reportable 09/10/16 08:31 Target Cells Not Reportable 09/10/16 08:31 Tear Drop Cells Rare 09/10/16 08:31 Ovalocytes 2+ 09/10/16 08:31 Helmet Cells Not Reportable 09/10/16 08:31 [place] Bodies Not Reportable 09/10/16 08:31 [place] Rings Not Reportable 09/10/16 08:31 Dianna Cells Not Reportable 09/10/16 08:31 Bite Cells Not Reportable 09/10/16 08:31 Crenated Cell Not Reportable 09/10/16 08:31 Elliptocytes Not Reportable 09/10/16 08:31 Acanthocytes (Spur) 1+ 09/10/16 08:31 Rouleaux Not Reportable 09/10/16 08:31 Hemoglobin C Crystals Not Reportable 09/10/16 08:31 Schistocytes Not Reportable 09/10/16 08:31 Malaria parasites Not Reportable 09/10/16 08:31 Telly Bodies Not Reportable 09/10/16 08:31 Hem Pathologist Commnt No 09/10/16 08:31 PT 13.3 Sec. (12.2-14.9) 09/13/16 04:56 INR 0.96 (0.87-1.13) 09/13/16 04:56 POC ABG pH 7.368 (7.35-7.45) 09/09/16 10:20 POC ABG pCO2 25.1 (35-45) L 09/09/16 10:20 POC ABG pO2 91 (80-105) 09/09/16 10:20 POC ABG HCO3 14.5 09/09/16 10:20 POC ABG Total CO2 15 09/09/16 10:20 POC ABG O2 Sat 97 09/09/16 10:20 POC ABG Base Excess -11 09/09/16 10:20 FiO2 21 % 09/09/16 10:20 Sodium 131 mmol/L (137-145) L 09/13/16 04:56 Potassium 4.2 mmol/L (3.6-5.0) 09/13/16 11:10 Chloride 96.7 mmol/L (98-107) L 09/13/16 04:56 Carbon Dioxide 22 mmol/L (22-30) 09/13/16 04:56 Anion Gap 18 mmol/L 09/13/16 04:56 BUN 19 mg/dL (9-20) 09/13/16 04:56 Creatinine 1.2 mg/dL (0.8-1.5) 09/13/16 04:56 Estimated GFR > 60 ml/min 09/13/16 04:56 BUN/Creatinine Ratio 15.83 % 09/13/16 04:56 Glucose 70 mg/dL (75-100) L 09/13/16 04:56 POC Glucose 121 (70-105) H 09/13/16 13:53 Lactic Acid 0.80 mmol/L (0.7-2.0) 09/07/16 13:44 Calcium 8.3 mg/dL (8.4-10.2) L 09/13/16 04:56 Total Bilirubin 0.30 mg/dL (0.1-1.2) 09/07/16 13:44 AST 13 units/L (5-40) 09/07/16 13:44 ALT < 5 units/L (7-56) L 09/07/16 13:44 Alkaline Phosphatase 51 units/L (35-129) 09/07/16 13:44 Troponin T < 0.010 ng/mL (0.00-0.029) 09/07/16 13:44 Total Protein 8.0 g/dL (6.3-8.2) 09/07/16 13:44 Albumin 2.6 g/dL (3.9-5) L 09/07/16 13:44 Albumin/Globulin Ratio 0.5 % 09/07/16 13:44 TB (QFT) Gold In Tube Indeterminate (Negative) H 09/09/16 16:45 TB Test (QFT) Nil 0.05 IU/mL 09/09/16 16:45 TB Test Mitogen - Nil <0.00 IU/mL 09/09/16 16:45 TB Test Antigen - Nil <0.00 IU/mL 09/09/16 16:45 Blood Type A POSITIVE 09/10/16 08:35 Antibody Screen TNR 09/10/16 08:35 WALE Antibody Screen Negative 09/10/16 08:35 Crossmatch See Detail 09/10/16 08:35
[2016-09-14] MEDS: ZOVIRAX PO SCH (22:47)
[2016-09-15] MEDS: ZOVIRAX PO SCH ×2 (05:38→13:50)
[2016-09-15] MEDS: BACTRIM DS PO SCH ×2 (05:39→13:50)
[2016-09-15] MEDS: LEVAQUIN PO SCH (09:40)
[2016-09-15] MEDS: PEPCID PO SCH (09:41)
[2016-09-15] MEDS: DIFLUCAN PO SCH (09:41)
--- NOTE | 2016-09-15 11:43 | Progress Note ---
Subjective Date of service: 09/15/16 Principal diagnosis: Pneumonia Interval history: Seen and examined at bedside; 24 hour events reviewed; nursing and respiratory care staff consulted; no adverse overnight events reported to me; Objective Vital Signs - 12hr 09/15/16 07:55 Temperature 98.8 F Pulse Rate [ 69 From Monitor] Pulse Rate [ 69 Right Radial] Respiratory 18 Rate Blood Pressure 98/57 [Left Arm] O2 Sat by Pulse 97 Oximetry Constitutional: no acute distress, alert, other (Weak) Eyes: non-icteric ENT: oropharynx moist Neck: supple, no lymphadenopathy Ascultation: Bilateral: clear Cardiovascular: regular rate and rhythm Gastrointestinal: normoactive bowel sounds, soft, non-tender Integumentary: normal Extremities: no cyanosis, no edema Neurologic: normal mental status, non-focal exam, pupils equal and round, CN II- XII normal Psychiatric: mood appropriate CBC and BMP: 09/13/16 04:56 09/13/16 11:10 ABG, PT/INR, D-dimer: ABG POC ABG pH 7.368 (7.35-7.45) 09/09/16 10:20 POC ABG pCO2 25.1 (35-45) L 09/09/16 10:20 POC ABG pO2 91 (80-105) 09/09/16 10:20 POC ABG HCO3 14.5 09/09/16 10:20 POC ABG Total CO2 15 09/09/16 10:20 POC ABG O2 Sat 97 09/09/16 10:20 PT/INR, D-dimer PT 13.3 Sec. (12.2-14.9) 09/13/16 04:56 INR 0.96 (0.87-1.13) 09/13/16 04:56 Abnormal lab findings: Abnormal Labs 09/09/16 09/09/16 09/09/16 05:46 05:46 10:20 WBC 3.2 L RBC 2.76 L Hgb 6.2 L Hct 20.8 L MCV 75 L MCH 23 L MCHC 30 L RDW 18.9 H Plt Count 139 L Lymph % (Auto) 12.3 L [place] % (Auto) 9.8 H Lymph # 0.4 L Seg Neutrophils % 77.7 H Seg Neuts % (Manual) Lymphocytes % (Manual) Lymphocytes # (Manual) POC ABG pCO2 25.1 L Sodium Potassium Chloride 110.1 H Carbon Dioxide 16 L BUN Glucose POC Glucose Calcium 7.4 L TB (QFT) Gold In Tube Crossmatch 09/09/16 09/10/16 09/10/16 16:45 08:31 08:31 WBC 3.3 L RBC 3.03 L Hgb 6.8 L Hct 22.8 L MCV 75 L MCH 23 L MCHC 30 L RDW 19.2 H Plt Count Lymph % (Auto) [place] % (Auto) Lymph # Seg Neutrophils % Seg Neuts % (Manual) 90.0 H Lymphocytes % (Manual) 6.0 L Lymphocytes # (Manual) 0.2 L POC ABG pCO2 Sodium Potassium Chloride Carbon Dioxide 19 L BUN Glucose POC Glucose Calcium 8.2 L TB (QFT) Gold In Tube Indeterminate H Crossmatch 09/10/16 09/11/16 09/11/16 08:35 04:18 05:53 WBC RBC Hgb Hct MCV MCH MCHC RDW Plt Count Lymph % (Auto) [place] % (Auto) Lymph # Seg Neutrophils % Seg Neuts % (Manual) Lymphocytes % (Manual) Lymphocytes # (Manual) POC ABG pCO2 Sodium 136 L Potassium 5.3 H Chloride Carbon Dioxide 18 L BUN Glucose 110 H POC Glucose 123 H Calcium 8.2 L TB (QFT) Gold In Tube Crossmatch See Detail 09/11/16 09/12/16 09/12/16 07:48 04:19 04:19 WBC 4.3 L 2.5 L RBC Hgb 9.4 L 9.2 L Hct 29.7 L D 30.1 L MCV 77 L 77 L MCH 24 L 24 L MCHC 31 L RDW 19.2 H 19.0 H Plt Count Lymph % (Auto) 6.8 L 12.4 L [place] % (Auto) 8.0 H 11.9 H Lymph # 0.3 L 0.3 L Seg Neutrophils % 85.0 H 75.2 H Seg Neuts % (Manual) Lymphocytes % (Manual) Lymphocytes # (Manual) POC ABG pCO2 Sodium 133 L Potassium Chloride Carbon Dioxide 19 L BUN 21 H Glucose POC Glucose Calcium 8.1 L TB (QFT) Gold In Tube Crossmatch 09/13/16 09/13/16 09/13/16 04:56 04:56 13:07 WBC 2.4 L RBC Hgb 10.6 L Hct 33.9 L MCV 77 L MCH 24 L MCHC 31 L RDW 19.4 H Plt Count Lymph % (Auto) 8.6 L [place] % (Auto) 11.5 H Lymph # 0.2 L Seg Neutrophils % 79.5 H Seg Neuts % (Manual) Lymphocytes % (Manual) Lymphocytes # (Manual) POC ABG pCO2 Sodium 131 L Potassium 5.5 H Chloride 96.7 L Carbon Dioxide BUN Glucose 70 L POC Glucose < 40 L Calcium 8.3 L TB (QFT) Gold In Tube Crossmatch 09/13/16 13:53 WBC RBC Hgb Hct MCV MCH MCHC RDW Plt Count Lymph % (Auto) [place] % (Auto) Lymph # Seg Neutrophils % Seg Neuts % (Manual) Lymphocytes % (Manual) Lymphocytes # (Manual) POC ABG pCO2 Sodium Potassium Chloride Carbon Dioxide BUN Glucose POC Glucose 121 H Calcium TB (QFT) Gold In Tube Crossmatch
[2016-09-15 12:39] VITALS: BP 102/61
== END 2016-09-15 14:15 | DRG 974 ==
LOC: ED 12:08 → 3A 16:08
PROVIDERS: ADMIT Internal Medicine; ATTEND Internal Medicine
PROC: 4A033R1 Measurement of Arterial Saturation, Peripheral, Percutaneous Approach (ICD-10-PCS; 2016-09-09)
PROC: 30233N1 Transfusion of Nonautologous Red Blood Cells into Peripheral Vein, Percutaneous Approach (ICD-10-PCS; principal; 2016-09-10)
PROC: 0DB58ZX Excision of Esophagus, Via Natural or Artificial Opening Endoscopic, Diagnostic (ICD-10-PCS; 2016-09-13)
DX: B20 Human immunodeficiency virus [HIV] disease (principal); B59 Pneumocystosis; E43 Unspecified severe protein-calorie malnutrition; G93.40 Encephalopathy, unspecified; J18.9 Pneumonia, unspecified organism; Z68.1 Body mass index [BMI] 19.9 or less, adult; K22.10 Ulcer of esophagus without bleeding; B37.0 Candidal stomatitis; J45.909 Unspecified asthma, uncomplicated; Z91.19 Patient's noncompliance with other medical treatment and regimen; D63.8 Anemia in other chronic diseases classified elsewhere; R13.10 Dysphagia, unspecified; K44.9 Diaphragmatic hernia without obstruction or gangrene
CPT/HCPCS: 36415; 36600; 71010; 80048; 80053; 82140; 82164; 82803; 82955; 82962; 84132; 84484; 85007; 85025; 85610; 86403; 86850; 86900; 86901; 86920; 87040; 87070; 87205; 88305; 88312; 88342; 93005; 93010; 94760; 96365; 96368; 99285; G8978-GP; G8979-GP; G8980-GP; J0133; J0456; J0692; J1720; J1815; J1940; J1956; J2704; J3370; J7030; J7040; J7050; J7060; J7070; J7512; P9016